=== PATIENT | female | born 1935 | race African-American/Black ===

== ENCOUNTER 2017-10-28 15:18 | Observation (INO) | payer OTHER ==
[~2017-10-28] VITALS: Ht 152.4 cm; Wt 70.0 kg
[2017-10-28 15:22] VITALS: BP 183/81; PULSE 72; RESP 18; TEMP 99; O2SAT 94
--- NOTE | 2017-10-28 15:44 | PD ---
HPI Chief Complaint: Respiratory Symptoms Time Seen by Provider: 15:35 Travel History International Travel<30 days: No Contact w/Intl Traveler<30days: No Traveled to known affect area: No History of Present Illness HPI 82-year-old Afro-Af[place] female presents the emergency department with her daughter with reports of increasing dyspnea with exertion over the past week. The patient herself complains of no pain, significant shortness of breath, abdominal pain, or urinary symptoms. Denies cough or wheezing. Patient's O2 sat is 94% on room air in triage. Patient has no history of COPD or asthma. Patient does have history of CHF. Patient has history of TIA in the past. Patient has no acute complaints at this time. Patient states the edema in her legs is not more than usual. She denies chest pain or calf pain. She has no known drug allergies. PFSH Past Medical History Cardiovascular Problems: Yes Respiratory: Yes Social History Alcohol Use: No Tobacco Use: No Substance Use: No Allergies-Medications (Allergen,Severity, Reaction): Coded Allergies: No Known Allergies (Unverified , 10/28/17) Reported Meds & Prescriptions Reported Meds & Active Scripts Active Active Prescriptions or Reported Medications Unobtainable Review of Systems Except as stated in HPI: all other systems reviewed are Neg General / Constitutional: No: Fever, Chills Eyes: No: Visual changes HENT: No: Headaches Cardiovascular: Positive: Dyspnea on exertion (according to daughter.), Edema, No: Chest Pain or Discomfort, Palpitations, Irregular Rhythm, Tachycardia, Diaphoresis, Syncope, Varicosities, Cyanosis, Varicosities (chronic), Phlebitis , Claudication Respiratory: Positive: Shortness of Breath, No: Cough, Wheezing, Sneezing Gastrointestinal: Positive: Loss of Appetite, No: Nausea, Vomiting, Diarrhea, Abdominal Pain Genitourinary: No: Dysuria Musculoskeletal: No: Pain Skin: No Rash Neurologic: No: Weakness Psychiatric: No: Depression Endocrine: No: Polydipsia Hematologic/Lymphatic: No: Easy Bruising Physical Exam Narrative GENERAL: Patient appears in good spirits. She is in no acute distress. SKIN: Warm and dry. Normal color. Normal turgor. HEAD: Atraumatic. Normocephalic. EYES: Pupils equal and round. No scleral icterus. No injection or drainage. ENT: No nasal bleeding or discharge. Mucous membranes pink and moist. NECK: Trachea midline. No JVD. CARDIOVASCULAR: Regular rate and rhythm. No murmurs gallops or rubs appreciated. RESPIRATORY: No accessory muscle use. Mild crackles to both bases to auscultation. Breath sounds equal bilaterally. GASTROINTESTINAL: Abdomen soft, non-tender, nondistended. Hepatic and splenic margins not palpable. MUSCULOSKELETAL: Extremities without clubbing, cyanosis, but 1-2+ pitting edema to both lower extremities. No obvious deformities. No significant calf tenderness with palpation. Negative Homans sign bilaterally. NEUROLOGICAL: Awake and alert. No obvious cranial nerve deficits. Motor grossly within normal limits. Five out of 5 muscle strength in the arms and legs. Normal speech. PSYCHIATRIC: Appropriate mood and affect; insight and judgment normal. Data Data Last Documented VS Vital Signs Date Time Temp Pulse Resp B/P (MAP) Pulse Ox O2 Delivery O2 Flow Rate FiO2 10/28/17 17:55 79 16 223/95 (137) 96 Nasal Cannula 2.00 10/28/17 15:22 99.0 Orders Orders Complete Blood Count With Diff (10/28/17 15:39) Comprehensive Metabolic Panel (10/28/17 15:39) B-Type Natriuretic Peptide (10/28/17 15:39) Act Partial Throm Time (Ptt) (10/28/17 15:39) Prothrombin Time / Inr (Pt) (10/28/17 15:39) Magnesium (Mg) (10/28/17 15:39) Ckmb (Isoenzyme) Profile (10/28/17 15:39) Troponin I (10/28/17 15:39) Urinalysis - C+S If Indicated (10/28/17 15:39) Iv Access Insert/Monitor (10/28/17 15:39) Electrocardiogram (10/28/17 15:39) Ecg Monitoring (10/28/17 15:39) Oximetry (10/28/17 15:39) Oxygen Administration (10/28/17 15:39) Chest, Single Ap (10/28/17 15:39) Sodium Chloride 0.9% Flush (Ns Flush) (10/28/17 15:45) Furosemide Inj (Lasix Inj) (10/28/17 15:45) CKMB (10/28/17 15:45) CKMB% (10/28/17 15:45) Ceftriaxone Inj (Rocephin Inj) (10/28/17 18:15) Azithromycin (Zithromax) (10/28/17 18:15) Labs Laboratory Tests Test 10/28/17 15:45 10/28/17 16:35 White Blood Count 12.3 TH/MM3 Red Blood Count 4.37 MIL/MM3 Hemoglobin 12.4 GM/DL Hematocrit 35.5 % Mean Corpuscular Volume 81.1 FL Mean Corpuscular Hemoglobin 28.4 PG Mean Corpuscular Hemoglobin Concent 35.1 % Red Cell Distribution Width 16.7 % Platelet Count 456 TH/MM3 Mean Platelet Volume 7.4 FL Neutrophils (%) (Auto) 68.3 % Lymphocytes (%) (Auto) 19.2 % Monocytes (%) (Auto) 9.8 % Eosinophils (%) (Auto) 1.5 % Basophils (%) (Auto) 1.2 % Neutrophils # (Auto) 8.4 TH/MM3 Lymphocytes # (Auto) 2.4 TH/MM3 Monocytes # (Auto) 1.2 TH/MM3 Eosinophils # (Auto) 0.2 TH/MM3 Basophils # (Auto) 0.1 TH/MM3 CBC Comment DIFF FINAL Differential Comment Prothrombin Time 10.2 SEC Prothromb Time International Ratio 1.0 RATIO Activated Partial Thromboplast Time 27.9 SEC Blood Urea Nitrogen 18 MG/DL Creatinine 1.13 MG/DL Random Glucose 118 MG/DL Total Protein 9.0 GM/DL Albumin 3.9 GM/DL Calcium Level 9.5 MG/DL Magnesium Level 2.3 MG/DL Alkaline Phosphatase 96 U/L Aspartate Amino Transf (AST/SGOT) 32 U/L Alanine Aminotransferase (ALT/SGPT) 42 U/L Total Bilirubin 0.2 MG/DL Sodium Level 136 MEQ/L Potassium Level 3.8 MEQ/L Chloride Level 100 MEQ/L Carbon Dioxide Level 29.9 MEQ/L Anion Gap 6 MEQ/L Estimat Glomerular Filtration Rate 46 ML/MIN Total Creatine Kinase 132 U/L Creatine Kinase MB 2.1 NG/ML Troponin I LESS THAN 0.02 NG/ML B-Type Natriuretic Peptide 294 PG/ML Urine Color YELLOW Urine Turbidity CLEAR Urine pH 6.5 Urine Specific [place] 1.012 Urine Protein 30 mg/dL Urine Glucose (UA) NEG mg/dL Urine Ketones NEG mg/dL Urine Occult Blood NEG Urine Nitrite NEG Urine Bilirubin NEG Urine Urobilinogen LESS THAN 2.0 MG/DL Urine Leukocyte Esterase SMALL Urine RBC 1 /hpf Urine WBC 6 /hpf Urine Squamous Epithelial Cells 2 /hpf Microscopic Urinalysis Comment CULT NOT INDICATED MDM Medical Decision Making Medical Screen Exam Complete: Yes Emergency Medical Condition: Yes Medical Record Reviewed: Yes Differential Diagnosis Exertional dyspnea. CHF. Cardiac syndrome. Renal failure. Narrative Course Patient is medically stable at time of exam per Labs ordered including CBC, CMP, proBNP, cardiac panel, and urinalysis. Chest x-ray is ordered. EKG is ordered. IV access is obtained and the patient is given 40 mg furosemide IV. EKG shows normal sinus rhythm. Chest x-ray shows left basilar opacity is present which may be due to a combination of consolidation and or pleural effusion and mild pulmonary edema. Per radiologist. CBC shows mild leukocytosis of 12.3. Coagulation studies are unremarkable. CMP significant for creatinine 1.13, GFR 46, random glucose 118. Troponin is less than 0.02, BNP is 294. Total protein is high at 9.0. Urinalysis is unremarkable. Patient is felt to have a possible pneumonia versus CHF. Patient is given Rocephin 1000 mg IM as well as azithromycin 500 mg by mouth. Call was placed to the hospitalist to discuss admission. Diagnosis Primary Impression: Pleural effusion associated with pulmonary infection Additional Impression: Exertional dyspnea Admitting Information Admitting Physician Requests: Observation Scripts Unable to Obtain Active Prescriptions or Reported Meds Condition: Faheem Thomas Oct 28, 2017 15:44
[2017-10-28] MEDS ORDERED: FUROSEMIDE 40 MG/4 ML VIAL IVP ONE (15:45)
[2017-10-28] MEDS ORDERED: SODIUM CHLORIDE 0.9% FLUSH 10 ML FLUSH IVF PRN (15:45)
[2017-10-28 15:58] LABS: AUTOMATED NEUTROPHIL # 8.4 TH/MM3 (1.8-7.7); BASOPHIL # 0.1 TH/MM3 (0-0.2); BASOPHIL % 1.2 % (0.0-2.0); EOSINOPHIL # 0.2 TH/MM3 (0-0.4); EOSINOPHIL % 1.5 % (0.0-4.0); HEMATOCRIT 35.5 % (35.0-46.0); HEMOGLOBIN 12.4 GM/DL (11.6-15.3); LYMPH % 19.2 % (9.0-44.0); LYMPHOCYTE # 2.4 TH/MM3 (1.0-4.8); MEAN CELL VOLUME 81.1 FL (80.0-100.0); MEAN CORPUSCULAR HEMOGLOBIN 28.4 PG (27.0-34.0); MEAN CORPUSCULAR HGB CONC 35.1 % (32.0-36.0); MEAN PLATELET VOLUME 7.4 FL (7.0-11.0); MONO % 9.8 % (0.0-8.0); MONOCYTE # 1.2 TH/MM3 (0-0.9); NEUT % 68.3 % (16.0-70.0); PLATELET COUNT 456 TH/MM3 (150-450); RED BLOOD COUNT 4.37 MIL/MM3 (4.00-5.30); RED CELL DISTRIBUTION WIDTH 16.7 % (11.6-17.2); WHITE BLOOD COUNT 12.3 TH/MM3 (4.0-11.0)
[2017-10-28 16:09] LABS: PROTHROMBIN TIME - PATIENT 10.2 SEC (9.8-11.6)
[2017-10-28 16:18] LABS: ALBUMIN 3.9 GM/DL (3.4-5.0); ALT (GPT) 42 U/L (10-53); AST (GOT) 32 U/L (15-37); BICARBONATE 29.9 MEQ/L (21.0-32.0); BLOOD UREA NITROGEN 18 MG/DL (7-18); CALCIUM 9.5 MG/DL (8.5-10.1); CHLORIDE 100 MEQ/L (98-107); CREATININE 1.13 MG/DL (0.50-1.00); GLOMERULAR FILTRATION RATE 46 ML/MIN (>89); GLUCOSE,RANDOM 118 MG/DL (74-106); MAGNESIUM 2.3 MG/DL (1.5-2.5); SODIUM (NA) 136 MEQ/L (136-145)
[2017-10-28 16:23] LABS: ALKALINE PHOSPHATASE 96 U/L (45-117); TOTAL BILIRUBIN ADULT 0.2 MG/DL (0.2-1.0); TROPONIN I LESS THAN 0.02 NG/ML (0.02-0.05)
--- NOTE | 2017-10-28 16:23 | RADRPT ---
EXAM DATE/TIME: 10/28/2017 16:07 [place] COMPARISON: No previous studies available for comparison. INDICATIONS : Shortness of breath. MEDICAL HISTORY : None. SURGICAL HISTORY : None. ENCOUNTER: Initial ACUITY: 1 day PAIN SCORE: 0/10 LOCATION: Bilateral chest FINDINGS: Left basilar opacity is present may be due to a combination of consolidation and or pleural effusion. Slight cardiomegaly is present with mild perivascular pulmonary edema. CONCLUSION: Left basilar opacity is present may be due to a combination of consolidation and or pleural effusion and mild pulmonary edema. Xuan Duff MD on October 28, 2017 at 16:20 Board Certified Radiologist. This report was verified electronically.
[2017-10-28 17:21] LABS: BILIRUBIN, URINE NEG (NEG); BLOOD, URINE NEG (NEG); GLUCOSE,URINE NEG (NEG); KETONE, URINE NEG (NEG); NITRITE,URINE NEG (NEG); PH, URINE 6.5 (5.0-8.5); SQUAMOUS EPITHELIAL CELL URINE 2 /hpf (0-5); URINE COLOR YELLOW (YELLW/STRAW); URINE LEUKOCYTE ESTERASE SMALL (NEG)
[2017-10-28 17:55] VITALS: BP 223/95; PULSE 79; RESP 16; O2SAT 96
[2017-10-28] MEDS ORDERED: AZITHROMYCIN 250 MG TAB PO ONE (18:15)
[2017-10-28] MEDS ORDERED: cefTRIAXone INJ 1,000 MG in SODIUM CHLORIDE 0.9% INJ 100 ML IV ONE (18:15)
[2017-10-28] MEDS ORDERED: NALOXONE HCL 0.4 MG/ML AMP IV PUSH PRN (18:45)
[2017-10-28] MEDS ORDERED: SODIUM CHLORIDE 0.9% FLUSH 10 ML FLUSH IV FLUSH PRN ×2 (18:45→19:00)
[2017-10-28] MEDS ORDERED: ACETAMINOPHEN/HYDROcodone 325 MG/10 MG TAB PO PRN (19:00)
[2017-10-28] MEDS ORDERED: MAGNESIUM HYDROXIDE SUSP 30 ML CUP PO PRN (19:00)
[2017-10-28] MEDS ORDERED: LACTULOSE SYRUP 20 GM/30 ML CUP PO PRN (19:00)
[2017-10-28] MEDS ORDERED: BISACODYL 10 MG SUPP RECTAL PRN (19:00)
[2017-10-28] MEDS ORDERED: RESP: ALBUTEROL 2.5 MG/IPRATROPIUM 0.5 MG NEB (PRN) NEB (19:00)
[2017-10-28] MEDS ORDERED: SENNOSIDES 8.6 MG TAB PO PRN (19:00)
[2017-10-28] MEDS ORDERED: ACETAMINOPHEN/HYDROcodone 325 MG/5 MG TAB PO PRN (19:00)
[2017-10-28] MEDS ORDERED: ONDANSETRON HCL 4 MG/2 ML VIAL IVP PRN (19:00)
[2017-10-28] MEDS ORDERED: ACETAMINOPHEN 325 MG TAB PO PRN (19:00)
--- NOTE | 2017-10-28 19:00 | HHI.HP ---
[facility] Service [facility] Primary Care Physician Kimo Vences III, MD Admission Diagnosis Pneumonia Diagnoses: (1) CHF (congestive heart failure) Diagnosis: Principal (2) PNA (pneumonia) Diagnosis: Principal (3) Renal insufficiency Diagnosis: Principal (4) Bacteriuria Diagnosis: Principal (5) HTN (hypertension) Diagnosis: Principal Travel History International Travel<30 Days: No Contact w/Intl Traveler <30 Da: No Traveled to Known Affected Are: No History of Present Illness This is an 82-year-old female with a PMH of HTN and CHF (EF unknown) who is brought to the ER by Daughter secondary to SOB for approx 1wk. Pt reports mild SOB however worse w/ exertion. No associated chest pain, cough or wheezing. Does note bilateral lower extremity edema, worse than baseline. Moderate severity. On arrival, BP 183/81, HR 72, O2 sat 94% on RA, Temp 99.0. Chemistry unremarkable except for creatinine 1.13. Troponin negative. BNP 294. INR 1.0. UA with LE and bacteriuria. CXR with left basilar opacity possibly, patient consolidation and or pleural effusion and mild pulmonary edema. S/p Lasix 40mg IV x1 and Rocephin/Zithro in ER. Review of Systems Except as stated in HPI: all other systems reviewed are Neg ROS: 14 point review of systems otherwise negative. Past Family Social History Past Medical History PMH: HTN and CHF (EF unknown) Past Surgical History PAST SURGICAL HISTORY: None Allergies: Coded Allergies: No Known Allergies (Unverified , 10/28/17) Family History PAST FAMILY HISTORY: Reviewed. No h/o DM or CAD Social History PAST SOCIAL HISTORY: Negative for alcohol, tobacco or drugs per Physical Exam Vital Signs Vital Signs Date Time Temp Pulse Resp B/P (MAP) Pulse Ox O2 Delivery O2 Flow Rate FiO2 10/28/17 17:55 79 16 223/95 (137) 96 Nasal Cannula 2.00 10/28/17 15:22 99.0 72 18 183/81 (115) 94 Room Air Physical Exam PE: GENERAL: Pleasant elderly black female in no acute distress. HEENT: PERRLA, EOMI. No scleral icterus or conjunctival pallor. No lid lag or facial droop. CARDIOVASCULAR: Regular rate and rhythm. No obvious murmurs to auscultation. No chest tenderness to palpation. RESPIRATORY: No obvious rhonchi or wheezing. Clear to auscultation. Breath sounds equal bilaterally. GASTROINTESTINAL: Abdomen soft, non-tender, nondistended. BS normal. MUSCULOSKELETAL: Extremities without clubbing, cyanosis. 1+ edema. No obvious deformities. NEUROLOGICAL: Awake, alert and oriented x4. No focal neurologic deficits. Moving both upper and lower extremities spontaneously. Laboratory Laboratory Tests Test 10/28/17 15:45 10/28/17 16:35 White Blood Count 12.3 Red Blood Count 4.37 Hemoglobin 12.4 Hematocrit 35.5 Mean Corpuscular Volume 81.1 Mean Corpuscular Hemoglobin 28.4 Mean Corpuscular Hemoglobin Concent 35.1 Red Cell Distribution Width 16.7 Platelet Count 456 Mean Platelet Volume 7.4 Neutrophils (%) (Auto) 68.3 Lymphocytes (%) (Auto) 19.2 Monocytes (%) (Auto) 9.8 Eosinophils (%) (Auto) 1.5 Basophils (%) (Auto) 1.2 Neutrophils # (Auto) 8.4 Lymphocytes # (Auto) 2.4 Monocytes # (Auto) 1.2 Eosinophils # (Auto) 0.2 Basophils # (Auto) 0.1 CBC Comment DIFF FINAL Differential Comment Prothrombin Time 10.2 Prothromb Time International Ratio 1.0 Activated Partial Thromboplast Time 27.9 Blood Urea Nitrogen 18 Creatinine 1.13 Random Glucose 118 Total Protein 9.0 Albumin 3.9 Calcium Level 9.5 Magnesium Level 2.3 Alkaline Phosphatase 96 Aspartate Amino Transf (AST/SGOT) 32 Alanine Aminotransferase (ALT/SGPT) 42 Total Bilirubin 0.2 Sodium Level 136 Potassium Level 3.8 Chloride Level 100 Carbon Dioxide Level 29.9 Anion Gap 6 Estimat Glomerular Filtration Rate 46 Total Creatine Kinase 132 Creatine Kinase MB 2.1 Troponin I LESS THAN 0.02 B-Type Natriuretic Peptide 294 Urine Color YELLOW Urine Turbidity CLEAR Urine pH 6.5 Urine Specific [place] 1.012 Urine Protein 30 Urine Glucose (UA) NEG Urine Ketones NEG Urine Occult Blood NEG Urine Nitrite NEG Urine Bilirubin NEG Urine Urobilinogen LESS THAN 2.0 Urine Leukocyte Esterase SMALL Urine RBC 1 Urine WBC 6 Urine Squamous Epithelial Cells 2 Microscopic Urinalysis Comment CULT NOT INDICATED Result Diagram: 10/28/17 1545 10/28/17 154 Caprini VTE Risk Assessment Caprini VTE Risk Assessment: No/Low Risk (score <= 1) Caprini Risk Assessment Model Point Value = 1 Point Value = 2 Point Value = 3 Point Value = 5 Age 41-60 Minor surgery BMI > 25 kg/m2 Swollen legs Varicose veins or History of unexplained or recurrent spontaneous Oral contraceptives or hormone replacement Sepsis (< 1 month) Serious lung disease, including pneumonia (< 1 month) Abnormal pulmonary function Acute myocardial infarction Congestive heart failure (< 1 month) History of inflammatory bowel disease Medical patient at bed rest Age 61-74 Arthroscopic surgery Major open surgery (> 45 min) Laparoscopic surgery (> 45 min) Malignancy Confined to bed (> 72 hours) Immobilizing plaster cast Central venous access Age >= 75 History of VTE Family history of VTE Factor V Leiden Prothrombin [id number] Lupus anticoagulant Anticardiolipin antibodies Elevated serum homocysteine Heparin-induced thrombocytopenia Other congenital or acquired thrombophilia Stroke (< 1 month) Elective arthroplasty Hip, pelvis, or leg fracture Acute spinal cord injury (< 1 month) Prophylaxis Regimen Total Risk Factor Score Risk Level Prophylaxis Regimen 0-1 Low Early ambulation 2 Moderate Order ONE of the following: *Sequential Compression Device (SCD) *Heparin 5000 units SQ BID 3-4 Higher Order ONE of the following medications: *Heparin 5000 units SQ TID *Enoxaparin/Lovenox 40 mg SQ daily (WT < 150 kg, CrCl > 30 mL/min) *Enoxaparin/Lovenox 30 mg SQ daily (WT < 150 kg, CrCl > 10-29 mL/min) *Enoxaparin/Lovenox 30 mg SQ BID (WT < 150 kg, CrCl > 30 mL/min) AND/OR *Sequential Compression Device (SCD) 5 or more Highest Order ONE of the following medications: *Heparin 5000 units SQ TID (Preferred with Epidurals) *Enoxaparin/Lovenox 40 mg SQ daily (WT < 150 kg, CrCl > 30 mL/min) *Enoxaparin/Lovenox 30 mg SQ daily (WT < 150 kg, CrCl > 10-29 mL/min) *Enoxaparin/Lovenox 30 mg SQ BID (WT < 150 kg, CrCl > 30 mL/min) AND *Sequential Compression Device (SCD) Assessment and Plan Problem List: (1) CHF (congestive heart failure) ICD Code: I50.9 - Heart failure, unspecified (2) PNA (pneumonia) ICD Code: J18.9 - Pneumonia, unspecified organism (3) Bacteriuria ICD Code: R82.71 - Bacteriuria (4) Renal insufficiency ICD Code: N28.9 - Disorder of kidney and ureter, unspecified (5) HTN (hypertension) ICD Code: I10 - Essential (primary) hypertension Assessment and Plan A/P: 1. CHF: h/o CHF per report, however EF unknown. BNP 294, CXR w/ likely pleural effusion and mild pulmonary edema, on exam 1+ bilateral pitting edema. S/p Lasix 40mg IV x1 in ER, continue w/ Lasix 20mg IV bid, caution w/ renal insufficiency, monitor I/O closely. Check Echo to eval for extent of systolic/ diastolic dysfunction. Resume home medications once available, no med rec at this time. 2. PNA: CXR w/ LLL opacity, consolidation w/ effusion, images reviewed by me. Temp 99.0, +leukocytosis w/ WBC 12.3. S/p Rocephin/Zithro, will continue w/ IV Abx for empiric treatment of PNA. DuoNeb prn. 3. Renal Insufficiency: Creatinine 1.13, no previous labs for comparison. IVF for hydration, caution with CHF and diuresis. Repeat labs in a.m. 4. Bacteriuria. UA with small LE and bacteriuria, asymptomatic, however in light of multiple comorbidities and low-grade temps/leukocytosis, will continue with IV Abx for coverage of UTI as well. 5. HTN: Uncontrolled. BP 183/81, HR 72 on arrival. Start Metoprolol bid, monitor BP closely for need to add additional medications, obtain med rec. 6. DVT Prophylaxis: SCD/Teds. 7. Social work for d/c planning as needed. 8. Records/labs/imaging reviewed by me, case discussed w/ day physician. Lanny Mercado MD Oct 28, 2017 19:00
--- NOTE | 2017-10-28 19:31 | EKG ---
Date Performed: 10/28/2017 Time Performed: 15:57:48 PTAGE: 82 years EKG: Baseline artifact present probable Sinus rhythm NONSPECIFIC T-WAVE ABNORMALITY BORDERLINE ECG NO PREVIOUS TRACING DOCTOR: Ethan Henderson Interpretating Date/Time 10/28/2017 19:29:27
[2017-10-28 19:32] VITALS: BP 139/78
[2017-10-28] MEDS ORDERED: VERA1TAB17 PO (20:23)
[2017-10-28] MEDS ORDERED: QUET5TAB PO (20:23)
[2017-10-28] MEDS ORDERED: DONE5TAB7 PO (20:23)
[2017-10-28] MEDS ORDERED: TRAZ50TA12 PO (20:23)
[2017-10-28] MEDS ORDERED: ASPI81TA81 (20:23)
[2017-10-28] MEDS ORDERED: OXYC1TAB63 PO (20:23)
[2017-10-28] MEDS ORDERED: LORA0.5T PO (20:23)
[2017-10-28] MEDS ORDERED: LINA145C PO (20:23)
[2017-10-28] MEDS ORDERED: TRAV0.00 EACH EYE (20:23)
[2017-10-28] MEDS: METOPROLOL TARTRATE 25 MG TAB PO SCH (20:38)
[2017-10-28] MEDS: DOCUSATE SODIUM 50 MG/SENNA 8.6 MG TAB PO SCH (20:38)
[2017-10-28] MEDS: SODIUM CHLORIDE 0.9% FLUSH 10 ML FLUSH IV FLUSH SCH (20:39)
[2017-10-28 20:51] VITALS: BP 168/72; PULSE 71; RESP 22; TEMP 97.6; O2SAT 97
[2017-10-28] MEDS ORDERED: SODIUM CHLORIDE 0.9% FLUSH 10 ML FLUSH IV FLUSH SCH (21:00)
[2017-10-28 22:06] LABS: TROPONIN I LESS THAN 0.02 NG/ML (0.02-0.05)
[2017-10-28 23:04] VITALS: BP 152/72; PULSE 67; RESP 20; TEMP 98.1; O2SAT 94
[2017-10-29] VITALS (13 sets, daily range): BP systolic 149–192; BP diastolic 69–89; PULSE 61–73; RESP 16–21; TEMP 97.4–98.5; O2SAT 96–100
[2017-10-29 04:17] LABS: AUTOMATED NEUTROPHIL # 6.1 TH/MM3 (1.8-7.7); BASOPHIL # 0.1 TH/MM3 (0-0.2); BASOPHIL % 0.6 % (0.0-2.0); EOSINOPHIL # 0.2 TH/MM3 (0-0.4); EOSINOPHIL % 2.2 % (0.0-4.0); HEMATOCRIT 33.1 % (35.0-46.0); HEMOGLOBIN 11.4 GM/DL (11.6-15.3); LYMPHOCYTE # 1.6 TH/MM3 (1.0-4.8); MEAN CELL VOLUME 80.3 FL (80.0-100.0); MEAN CORPUSCULAR HEMOGLOBIN 27.7 PG (27.0-34.0); MEAN CORPUSCULAR HGB CONC 34.6 % (32.0-36.0); MEAN PLATELET VOLUME 7.3 FL (7.0-11.0); MONO % 10.2 % (0.0-8.0); MONOCYTE # 0.9 TH/MM3 (0-0.9); PLATELET COUNT 407 TH/MM3 (150-450); RED BLOOD COUNT 4.12 MIL/MM3 (4.00-5.30); RED CELL DISTRIBUTION WIDTH 16.9 % (11.6-17.2); WHITE BLOOD COUNT 8.9 TH/MM3 (4.0-11.0)
[2017-10-29 04:37] LABS: ALBUMIN 3.4 GM/DL (3.4-5.0); AST (GOT) 37 U/L (15-37); BICARBONATE 28.7 MEQ/L (21.0-32.0); BLOOD UREA NITROGEN 16 MG/DL (7-18); CALCIUM 9.1 MG/DL (8.5-10.1); CHLORIDE 97 MEQ/L (98-107); GLOMERULAR FILTRATION RATE 64 ML/MIN (>89); GLUCOSE,RANDOM 122 MG/DL (74-106); SODIUM (NA) 135 MEQ/L (136-145)
[2017-10-29 04:38] LABS: ALT (GPT) 35 U/L (10-53)
[2017-10-29 04:41] LABS: ALKALINE PHOSPHATASE 79 U/L (45-117); TOTAL BILIRUBIN ADULT 0.4 MG/DL (0.2-1.0); TOTAL PROTEIN 7.8 GM/DL (6.4-8.2); TROPONIN I LESS THAN 0.02 NG/ML (0.02-0.05)
[2017-10-29] MEDS: DOCUSATE SODIUM 50 MG/SENNA 8.6 MG TAB PO SCH ×2 (07:36→20:41)
[2017-10-29] MEDS: METOPROLOL TARTRATE 25 MG TAB PO SCH ×2 (07:36→22:47)
[2017-10-29] MEDS: SODIUM CHLORIDE 0.9% FLUSH 10 ML FLUSH IV FLUSH SCH ×2 (07:37→20:40)
[2017-10-29] MEDS: FUROSEMIDE 20 MG/2 ML VIAL IV PUSH SCH ×2 (07:37→17:12)
[2017-10-29] MEDS ORDERED: cloNIDine HCL 0.1 MG TAB PO PRN (08:00)
[2017-10-29] MEDS ORDERED: hydrALAZINE HCL 10 MG TAB PO PRN (08:45)
--- NOTE | 2017-10-29 09:03 | EKG ---
Date Performed: 10/29/2017 Time Performed: 04:22:39 PTAGE: 82 years EKG: Sinus rhythm Nonspecific T wave changes No significant change from prior electrocardiogram. PREVIOUS TRACING : 10/28/2017 21.37 DOCTOR: Ethan Henderson Interpretating Date/Time 10/29/2017 09:03:33
--- NOTE | 2017-10-29 09:19 | EKG ---
Date Performed: 10/28/2017 Time Performed: 21:37:39 PTAGE: 82 years EKG: Baseline artifact present Sinus rhythm NONSPECIFIC T-WAVE ABNORMALITY BORDERLINE ECG No significant change from prior electrocardiogram. PREVIOUS TRACING : 10/28/2017 15.57 DOCTOR: Ethan Henderson Interpretating Date/Time 10/29/2017 09:17:34
[2017-10-29] MEDS: ENALAPRILAT 1.25 MG/ML VIAL IV PUSH PRN ×2 (11:08→17:11)
--- NOTE | 2017-10-29 13:18 | HHI.PR ---
Subjective Remarks Weakness and SOB still present, but improving. She ambulates well at baseline. No oxygen dependence at baseline. Pressures are uncontrolled today. Objective Vital Signs Date Time Temp Pulse Resp B/P (MAP) Pulse Ox O2 Delivery O2 Flow Rate FiO2 10/29/17 12:27 152/79 (103) 10/29/17 11:22 98.1 63 18 99 10/29/17 11:05 180/77 (111) 10/29/17 09:21 152/78 (102) 10/29/17 08:00 61 10/29/17 07:07 97.4 65 16 172/69 (103) 100 10/29/17 04:17 97.9 63 21 149/78 (101) 96 10/28/17 23:04 98.1 67 20 152/72 (98) 94 10/28/17 20:51 97.6 71 22 168/72 (104) 97 10/28/17 19:32 139/78 (98) 10/28/17 17:55 79 16 223/95 (137) 96 Nasal Cannula 2.00 10/28/17 15:22 99.0 72 18 183/81 (115) 94 Room Air I/O 10/28/17 10/28/17 10/28/17 10/29/17 10/29/17 10/29/17 07:00 15:00 23:00 07:00 15:00 23:00 Intake Total 500 ml Balance 500 ml Intake Oral 500 ml # Voids 1 2 Result Diagram: 10/29/17 0344 10/29/17 0344 Objective Remarks GENERAL: NAD, A&Ox1 HEAD: Normocephalic. NECK: Supple, trachea midline. No lymphadenopathy. EYES: No scleral icterus. No injection or drainage. CARDIOVASCULAR: Regular rate and rhythm without murmurs, gallops, or rubs. RESPIRATORY: Breath sounds equal bilaterally. No accessory muscle use. GASTROINTESTINAL: Abdomen soft, non-tender, nondistended. MUSCULOSKELETAL: No cyanosis, or edema. SKIN: Warm and dry. NEURO: No focal neurological deficitis. A/P Problem List: (1) PNA (pneumonia) ICD Code: J18.9 - Pneumonia, unspecified organism (2) HTN (hypertension) ICD Code: I10 - Essential (primary) hypertension Assessment and Plan 82-year-old female admitted secondary to respiratory distress and weakness Possible CHF exacerbation No known previous history of CHF Her daughter is unaware of any CHF Follow echocardiogram results Community Acquired Pneumonia Continue Rocephin Continue azithromycin Continue oxygen as needed Follow for improvement Renal insufficiency Monitor renal function Hypertension Continue metoprolol Monitor blood pressures DVT prophylaxis SCDs Kwaku Carreon MD Oct 29, 2017 13:18
--- NOTE | 2017-10-29 15:50 | ECHRPT ---
Indication: CHF CONCLUSIONS The left ventricular systolic function is normal with an estimated ejection fraction in the range of 60-65%. Normal left ventricular size. Moderate concentric left ventricular hypertrophy. No regional wall motion abnormalities are present. The left atrial size is moderately dilated. Trace mitral valve regurgitation. There is mild to moderate tricuspid valve regurgitation. There is estimated [id number] pulmonary hypertension present (range 60-70 mmHg). BP: / HR: Rhythm: Sinus MEASUREMENTS (Male / Female) Normal Values Technical Quality:Fair 2D ECHO LV Diastolic Diameter PLAX 3.4 cm 4.2 - 5.9 / 3.9 - 5.3 cm LV Systolic Diameter PLAX 2.2 cm IVS Diastolic Thickness 1.4 cm 0.6 - 1.0 / 0.6 - 0.9 cm LVPW Diastolic Thickness 1.4 cm 0.6 - 1.0 / 0.6 - 0.9 cm LV Relative Wall Thickness 0.8 RV Internal Dim ED PLAX 2.4 cm LVOT Diameter 2.0 cm LA Systolic Diameter LX 2.6 cm 3.0 - 4.0 / 2.7 - 3.8 cm LV Ejection Fraction MOD 4C 65.5 % LV Ejection Fraction 4C AL 67.7 % M-MODE Aortic Root Diameter MM 2.7 cm AV Cusp Separation MM 1.3 cm DOPPLER AV Peak Velocity 130.0 cm/s AV Peak Gradient 6.8 mmHg LVOT Peak Velocity 109.0 cm/s LVOT Peak Gradient 4.8 mmHg AV Area Cont Eq pk 2.6 cm MV Area PHT 5.2 cm Mitral E Point Velocity 126.0 cm/s Mitral A Point Velocity 86.9 cm/s Mitral E to A Ratio 1.4 LV E' Lateral Velocity 3.4 cm/s Mitral E to LV E' Lateral Ratio 37.0 LV E' Septal Velocity 3.5 cm/s Mitral E to LV E' Septal Ratio 35.9 TR Peak Velocity 379.0 cm/s TR Peak Gradient 57.5 mmHg Right Atrial Pressure 10.0 mmHg Pulmonary Artery Systolic Pressu 67.5 mmHg Right Ventricular Systolic Press 67.5 mmHg PV Peak Velocity 80.1 cm/s PV Peak Gradient 2.6 mmHg FINDINGS LEFT VENTRICLE The left ventricular systolic function is normal with an estimated ejection fraction in the range of 60-65%. Normal left ventricular size. Moderate concentric left ventricular hypertrophy. No regional wall motion abnormalities are present. RIGHT VENTRICLE Normal right ventricular size and systolic function. LEFT ATRIUM The left atrial size is moderately dilated. RIGHT ATRIUM The right atrial size is normal. ATRIAL SEPTUM Normal atrial septal thickness without atrial level shunting by limited color doppler interrogation. AORTA The aortic root and proximal ascending aorta are normal in size on limited imaging. MITRAL VALVE Structurally normal mitral valve. Trace mitral valve regurgitation. AORTIC VALVE Trileaflet aortic valve. No aortic valve stenosis or regurgitation. TRICUSPID VALVE Structurally normal tricuspid valve. There is mild to moderate tricuspid valve regurgitation. There is estimated [id number] pulmonary hypertension present (range 60-70 mmHg). PULMONARY VALVE No pulmonary valve regurgitation or stenosis. VESSELS The inferior vena cava is normal in size. PERICARDIUM No pericardial effusion. Vladislav Carpio MD, FACC (Electronically Signed) Final Date:29 October 2017 15:49
[2017-10-29] MEDS ORDERED: LEVOFLOXACIN 750 MG PREMIX INJ 150 ML IV SCH ×2 (20:00)
[2017-10-29] MEDS ORDERED: QUEtiapine FUMARATE 25 MG TAB PO SCH (21:00)
[2017-10-29] MEDS ORDERED: DONEPEZIL HCL 5 MG TAB PO SCH (21:00)
[2017-10-29] MEDS ORDERED: LATANOPROST 0.005% OPHT SOLN 2.5 ML BTL EACH EYE SCH (21:00)
[2017-10-29] MEDS ORDERED: traZODone HCL 50 MG TAB PO SCH (21:00)
[2017-10-29] MEDS ORDERED: VERAPAMIL HCL 240 MG SUSTAINED RELEASE TAB PO SCH (21:00)
[2017-10-30 00:11] VITALS: BP 140/82; PULSE 74; RESP 18; O2SAT 97
[2017-10-30 03:35] VITALS: PULSE 58
[2017-10-30 04:24] VITALS: BP 150/67; PULSE 78; RESP 18; TEMP 97.8; O2SAT 98
[2017-10-30 07:35] VITALS: O2SAT 98
[2017-10-30 08:28] LABS: AUTOMATED NEUTROPHIL # 5.5 TH/MM3 (1.8-7.7); BASOPHIL % 0.2 % (0.0-2.0); EOSINOPHIL # 0.2 TH/MM3 (0-0.4); EOSINOPHIL % 1.8 % (0.0-4.0); HEMATOCRIT 33.4 % (35.0-46.0); HEMOGLOBIN 11.4 GM/DL (11.6-15.3); LYMPH % 21.3 % (9.0-44.0); LYMPHOCYTE # 1.9 TH/MM3 (1.0-4.8); MEAN CELL VOLUME 80.7 FL (80.0-100.0); MEAN CORPUSCULAR HEMOGLOBIN 27.5 PG (27.0-34.0); MEAN PLATELET VOLUME 7.2 FL (7.0-11.0); MONO % 14.4 % (0.0-8.0); MONOCYTE # 1.3 TH/MM3 (0-0.9); NEUT % 62.3 % (16.0-70.0); PLATELET COUNT 374 TH/MM3 (150-450); RED BLOOD COUNT 4.14 MIL/MM3 (4.00-5.30); WHITE BLOOD COUNT 8.8 TH/MM3 (4.0-11.0)
[2017-10-30 08:38] VITALS: BP 177/76; PULSE 58; RESP 24; TEMP 98.2; O2SAT 100
[2017-10-30 08:54] LABS: ALT (GPT) 28 U/L (10-53); AST (GOT) 28 U/L (15-37); BICARBONATE 31.3 MEQ/L (21.0-32.0); BLOOD UREA NITROGEN 18 MG/DL (7-18); CALCIUM 8.7 MG/DL (8.5-10.1); CHLORIDE 96 MEQ/L (98-107); CREATININE 1.16 MG/DL (0.50-1.00); GLOMERULAR FILTRATION RATE 54 ML/MIN (>89); GLUCOSE,RANDOM 87 MG/DL (74-106); SODIUM (NA) 135 MEQ/L (136-145)
[2017-10-30 08:57] LABS: ALKALINE PHOSPHATASE 68 U/L (45-117); TOTAL BILIRUBIN ADULT 0.4 MG/DL (0.2-1.0); TOTAL PROTEIN 7.3 GM/DL (6.4-8.2)
[2017-10-30] MEDS: SODIUM CHLORIDE 0.9% FLUSH 10 ML FLUSH IV FLUSH SCH (09:12)
[2017-10-30] MEDS: DOCUSATE SODIUM 50 MG/SENNA 8.6 MG TAB PO SCH (09:13)
[2017-10-30] MEDS: METOPROLOL TARTRATE 25 MG TAB PO SCH (09:13)
[2017-10-30] MEDS: FUROSEMIDE 20 MG/2 ML VIAL IV PUSH SCH (09:13)
[2017-10-30] MEDS ORDERED: LEVA750T9 PO (09:45)
[2017-10-30] MEDS ORDERED: LACTTAB8 PO (09:45)
[2017-10-30] MEDS ORDERED: METO25TA3 PO (09:45)
--- NOTE | 2017-10-30 09:49 | HHI.DS ---
Discharge Summary Admission Date Oct 28, 2017 at 18:40 Discharge Date: Oct 30, 2017 Admitting Diagnosis Pneumonia (1) CHF (congestive heart failure) ICD Code: I50.9 - Heart failure, unspecified Diagnosis: Principal (2) PNA (pneumonia) ICD Code: J18.9 - Pneumonia, unspecified organism Diagnosis: Principal (3) Bacteriuria ICD Code: R82.71 - Bacteriuria Diagnosis: Secondary (4) Renal insufficiency ICD Code: N28.9 - Disorder of kidney and ureter, unspecified Diagnosis: Secondary (5) HTN (hypertension) ICD Code: I10 - Essential (primary) hypertension Diagnosis: Secondary Procedures None Brief History - From Admission This is an 82-year-old female with a PMH of HTN and CHF (EF unknown) who is brought to the ER by Daughter secondary to SOB for approx 1wk. Pt reports mild SOB however worse w/ exertion. No associated chest pain, cough or wheezing. Does note bilateral lower extremity edema, worse than baseline. Moderate severity. On arrival, BP 183/81, HR 72, O2 sat 94% on RA, Temp 99.0. Chemistry unremarkable except for creatinine 1.13. Troponin negative. BNP 294. INR 1.0. UA with LE and bacteriuria. CXR with left basilar opacity possibly, patient consolidation and or pleural effusion and mild pulmonary edema. S/p Lasix 40mg IV x1 and Rocephin/Zithro in ER. CBC/BMP: 10/30/17 0748 10/30/17 0748 Significant Findings Laboratory Tests Test 10/28/17 15:45 10/28/17 16:35 10/28/17 21:14 10/29/17 03:44 White Blood Count 12.3 TH/MM3 (4.0-11.0) Platelet Count 456 TH/MM3 (150-450) Monocytes (%) (Auto) 9.8 % (0.0-8.0) 10.2 % (0.0-8.0) Neutrophils # (Auto) 8.4 TH/MM3 (1.8-7.7) Monocytes # (Auto) 1.2 TH/MM3 (0-0.9) Creatinine 1.13 MG/DL (0.50-1.00) Random Glucose 118 MG/DL (74-106) 122 MG/DL (74-106) Total Protein 9.0 GM/DL (6.4-8.2) Estimat Glomerular Filtration Rate 46 ML/MIN (>89) 64 ML/MIN (>89) Troponin I LESS THAN 0.02 NG/ML LESS THAN 0.02 NG/ML LESS THAN 0.02 NG/ML B-Type Natriuretic Peptide 294 PG/ML (0-100) Urine Protein 30 mg/dL (NEG-TRACE) Urine Leukocyte Esterase SMALL (NEG) Urine WBC 6 /hpf (0-5) Total Creatine Kinase 334 U/L (26-192) 638 U/L (26-192) Creatine Kinase MB 4.5 NG/ML (0.5-3.6) 4.4 NG/ML (0.5-3.6) Hemoglobin 11.4 GM/DL (11.6-15.3) Hematocrit 33.1 % (35.0-46.0) Sodium Level 135 MEQ/L (136-145) Chloride Level 97 MEQ/L (98-107) Test 10/30/17 07:48 Hemoglobin 11.4 GM/DL (11.6-15.3) Hematocrit 33.4 % (35.0-46.0) Monocytes (%) (Auto) 14.4 % (0.0-8.0) Monocytes # (Auto) 1.3 TH/MM3 (0-0.9) Creatinine 1.16 MG/DL (0.50-1.00) Albumin 3.0 GM/DL (3.4-5.0) Sodium Level 135 MEQ/L (136-145) Chloride Level 96 MEQ/L (98-107) Estimat Glomerular Filtration Rate 54 ML/MIN (>89) Total Creatine Kinase 298 U/L (26-192) Hospital Course Mrs. Craig is an 82 year old female. She was admitted here secondary to acute shortness of breath. Etiology was discovered to be related to pneumonia. She has been covered with Levaquin while here. She has improvement in her symptoms. Respiratory status is returning towards baseline. Patient has no complaints today. She lives at home with her daughter. Dementia is present at baseline. Medical stable for discharge to home today with continuation of by mouth Levaquin and probiotics. We've also adjusted her blood pressure medications. She will discharge with metoprolol 25 mg by mouth twice a day. Pt Condition on Discharge: Stable Discharge Disposition: Discharge Home Discharge Time: <= 30 minutes Discharge Instructions DIET: Follow Instructions for: As Tolerated, No Restrictions Activities you can perform: Regular-No Restrictions Follow up Referrals: PCP Follow-up - 2 Weeks New Medications: Lactobacillus Acidophilus (Lactobacillus Acidophilus) 1 Billion Cell Tab 1 TAB PO TIDAC for Nutritional Supplement, #30 TAB 0 Refills Levofloxacin (Levaquin) 750 Mg Tablet 750 MG PO DAILY for Infection, #5 TAB 0 Refills Metoprolol Tartrate (Metoprolol Tartrate) 25 Mg Tab 25 MG PO Q12HR for Blood Pressure Management, #60 TAB Continued Medications: Aspirin DR (Aspir-81) 81 Mg Tabdr Donepezil (Donepezil) 5 Mg Tab 5 MG PO HS for Dementia, #30 TAB 0 Refills Lorazepam (Lorazepam) 0.5 Mg Tab 0.5 MG PO HS PRN for ANXIETY AND/OR INSOMNIA, TAB 0 Refills Oxycodone-Acetaminophen (Oxycodone-Acetaminophen) 5-325 mg Tab 1 TAB PO Q6H PRN for PAIN, TAB 0 Refills Quetiapine (Quetiapine) 50 Mg Tab 50 MG PO HS, #30 TAB 0 Refills Travoprost Opth Drops (Travatan Z Opth Drops) 0.004 % Soln 1 DROP EACH EYE HS for Glaucoma, #1 BOTTLE 0 Refills Trazodone (Trazodone) 50 Mg Tab 50 MG PO HS for Control Depression, #30 TAB 0 Refills Verapamil ER 24 HR (Verapamil ER 24 HR) 240 Mg Tab 240 MG PO HS, #30 TAB 0 Refills Kwaku Carreon MD Oct 30, 2017 09:48
== END 2017-10-30 12:35 | disposition home or self-care (01) ==
LOC: NEPE 15:18 → NEDA 18:40 → NEPGCP 20:11
PROVIDERS: ADMIT Hospitalist; ATTEND Hospitalist
DX: I50.9 Heart failure, unspecified (principal); I11.0 Hypertensive heart disease with heart failure; J18.9 Pneumonia, unspecified organism; R82.71 Bacteriuria; N28.9 Disorder of kidney and ureter, unspecified; F03.90 Unspecified dementia, unspecified severity, without behavioral disturbance, psychotic disturbance, mood disturbance, and anxiety; Z79.899 Other long term (current) drug therapy; Z86.73 Personal history of transient ischemic attack (TIA), and cerebral infarction without residual deficits
CPT/HCPCS: 71010; 80053; 81001; 82550; 82552; 83735; 83880; 84443; 84484; 85025; 85610; 85730; 93005; 93306; 94150; 96365; 96366; 96367; 96375; 96376; 97162; 99285; G0378; G8987; G8988; J0696; J1940; J1956

== ENCOUNTER 2018-06-06 17:18 | Inpatient (IN) ==
--- NOTE | 2018-06-06 19:37 | XR ---
EXAM DATE: 06/06/2018 7:31 PM EDT AGE/SEX: 83 years / Female INDICATIONS: Short of breath CLINICAL DATA: This is the patient's initial encounter. Patient reports that signs and symptoms have been present for 1 day and indicates a pain score of Nonresponsive. MEDICAL/SURGICAL HISTORY: . Cellulitis Non-responsive. COMPARISON: [facility], XR CHEST PA AND LAT, 12/12/2017. . FINDINGS: A single AP view of the chest demonstrates the lungs to be symmetrically aerated without evidence of mass, infiltrate or effusion. The cardiomediastinal contours are unremarkable. Osseous structures a re intact. CONCLUSION: No evidence of acute cardiopulmonary process. Electronically signed by: Thierno Castillo MD 06/06/2018 7:35 PM EDT
[2018-06-06 20:02] LABS: Baso # (Auto) 0.1 th/mm3 (0.0-0.2); Baso % (Auto) 0.7 % (0.0-2.0); Eos # (Auto) 0.1 th/mm3 (0.0-0.4); Eos % (Auto) 0.5 % (0.0-4.0); Lymph # (Auto) 2.5 th/mm3 (1.0-4.8); Lymph % (Auto) 22.8 % (9.0-44.0); Mean Corpuscular HGB Conc 33.2 % (32.0-36.0); Mean Corpuscular Hemoglobin 26.5 pg (27.0-34.0); Mean Corpuscular Volume 79.6 fL (80.0-100.0); Mean Platelet Volume 7.9 fL (7.0-11.0); Mono % (Auto) 9.4 % (0.0-8.0); Neut # (Auto) 7.2 th/mm3 (1.8-7.7); Neut % (Auto) 66.6 % (16.0-70.0); Platelet Count 453 th/mm3 (150-450); Red Blood Count 3.77 mil/mm3 (4.00-5.30); Red Cell Distribution Width 16.5 % (11.6-17.2); White Blood Count 10.9 th/mm3 (4.0-11.0)
[2018-06-06 20:13] LABS: Activated Partial Thrombo Time 28.2 sec (24.3-30.1); INR 1.1 Ratio; Prothrombin Time 10.7 sec (9.8-11.6)
[2018-06-06 20:35] LABS: Calcium 8.9 mg/dL (8.5-10.1); Carbon Dioxide 20.8 meq/L (21.0-32.0); Potassium 4.8 meq/L (3.5-5.1)
[2018-06-06] MEDS ORDERED: Sodium Chlor 0.9% Inj 500 ML IV.SIG ONE (20:39)
--- NOTE | 2018-06-06 20:58 | ED ---
HPI General Chief Complaint: Wound/Laceration Stated Complaint: wound check/dr sent Time Seen by Provider: 06/06/18 19:39 History of Present Illness HPI narrative: 83 yo female sent from home by wound care. Patient has dementia so the history is from the family member at bedside. She is not sure exactly why wound care sent her to the ER but reports no urine for the last three days. Patient has also not been eating much but this has been more of a gradual process per family. Related Data Home Medications Medication Instructions Recorded Confirmed aspirin 81 mg PO DAILY 06/06/18 06/06/18 collagenase clostridium histo. 1 applic TOPICAL DAILY 06/06/18 06/06/18 [Santyl] lorazepam 0.5 mg PO HS 06/06/18 06/06/18 memantine-donepezil [Namzaric] 1 cap PO HS 06/06/18 06/06/18 metoprolol succinate 25 mg PO DAILY 06/06/18 06/06/18 oxybutynin chloride 10 mg PO HS 06/06/18 06/06/18 pantoprazole 40 mg PO DAILY 06/06/18 06/06/18 pravastatin 20 mg PO HS 06/06/18 06/06/18 quetiapine 50 mg PO HS 06/06/18 06/06/18 trazodone 50 mg PO HS 06/06/18 06/06/18 verapamil 240 mg PO QAM 06/06/18 06/06/18 Allergies Allergy/AdvReac Type Severity Reaction Status Date / Time No Known Allergies Allergy Verified 06/06/18 17:27 Review of Systems ROS Unobtainable ROS Unobtainable: unobtainable due to mental condition PMFSH Medical History Medical History CHF (congestive heart failure) (Acute) Dementia (Acute) Depression (Acute) High cholesterol (Acute) Hypertension (Acute) Family History Family History Other Unknown family medical history Social History Social History Substance History: No History of Abuse Smoking Status: Former smoker How Often Do You Have a Drink Containing Alcohol: Never Recent Travel in [facility] within the Last 8 Weeks: No Recent Out of Country Travel within the Last 8 Weeks: No Immunization History Tetanus Immunization: Unsure Hx Influenza Vaccine This Season: No Exam Narrative Exam Narrative: GENERAL: 83-year-old female in no distress SKIN: Bilateral sacral decub stage II. Bilateral decubitus ulcers on the heels also stage II. HEAD: Atraumatic. Normocephalic. EYES: Pupils equal and round. No scleral icterus. No injection or drainage. ENT: No nasal bleeding or discharge. Mucous membranes pink and moist. NECK: Trachea midline. No JVD. CARDIOVASCULAR: Regular rate and rhythm. No murmur appreciated. RESPIRATORY: No accessory muscle use. Clear to auscultation. Breath sounds equal bilaterally. GASTROINTESTINAL: Abdomen soft, non-tender, nondistended. Hepatic and splenic margins not palpable. MUSCULOSKELETAL: Kyphotic Course Initial Documented Vital Signs Temperature 97.7 F 06/06/18 17:22 Pulse Rate 64 06/06/18 17:22 Respiratory Rate 22 06/06/18 17:22 Blood Pressure 157/69 H 06/06/18 17:22 Pulse Oximetry 99 06/06/18 17:22 Last Documented Vital Signs Temperature 98 F 06/07/18 04:00 Pulse Rate 72 06/07/18 04:00 Respiratory Rate 18 06/07/18 04:00 Blood Pressure 152/70 H 06/07/18 04:00 Pulse Oximetry 97 06/07/18 04:00 Medical Decision Making MDM Narrative Medical decision making narrative: Patient was seen and evaluated in the emergency department. Wound cultures were obtained. Her laboratory studies demonstrated acute renal failure with bump in her creatinine from 1.44.8. She was subsequently admitted to [facility] for further evaluation and treatment. Lab Data Result diagrams: 06/06/18 19:40 06/06/18 19:40 Lab Results 06/06/18 06/06/18 06/06/18 Range/Units 19:40 19:40 19:40 WBC 10.9 (4.0-11.0) th/mm3 RBC 3.77 L (4.00-5.30) mil/mm3 Hgb 10.0 L (11.6-15.3) gm/dL Hct 30.0 L (35.0-46.0) % MCV 79.6 L (80.0-100.0) fL MCH 26.5 L (27.0-34.0) pg MCHC 33.2 (32.0-36.0) % RDW 16.5 (11.6-17.2) % Plt Count 453 H (150-450) th/mm3 MPV 7.9 (7.0-11.0) fL Neut % (Auto) 66.6 (16.0-70.0) % Lymph % (Auto) 22.8 (9.0-44.0) % Mccreary % (Auto) 9.4 H (0.0-8.0) % Eos % (Auto) 0.5 (0.0-4.0) % Baso % (Auto) 0.7 (0.0-2.0) % Neut # (Auto) 7.2 (1.8-7.7) th/mm3 Lymph # (Auto) 2.5 (1.0-4.8) th/mm3 Mccreary # (Auto) 1.0 H (0.0-0.9) th/mm3 Eos # (Auto) 0.1 (0.0-0.4) th/mm3 Baso # (Auto) 0.1 (0.0-0.2) th/mm3 WBC Differential . Differential Comment Auto diff final PT 10.7 (9.8-11.6) sec INR 1.1 Ratio APTT 28.2 (24.3-30.1) sec Sodium 137 (136-145) meq/L Potassium 4.8 (3.5-5.1) meq/L Chloride 104 (98-107) meq/L Carbon Dioxide 20.8 L (21.0-32.0) meq/L Anion Gap 12 (5-15) meq/L BUN 57 H (7-18) mg/dL Creatinine 4.88 H (0.50-1.00) mg/dL Estimated GFR 10 L (>89) mL/min Random Glucose 94 (74-106) mg/dL Calcium 8.9 (8.5-10.1) mg/dL Imaging Data Radiologist's impression: Foot X-Ray 06/06/18 00:00 CONCLUSION: No evidence of recent bony injury. Foot X-Ray 06/06/18 00:00 CONCLUSION: Soft tissue swelling with ulceration or tissue injury along the posterior margin of the calcaneus. No evidence of acute fracture or significant arthropathy. Chest X-Ray 06/06/18 19:16 CONCLUSION: No evidence of acute cardiopulmonary process. Discharge Plan Discharge Disposition Patient Disposition: 30 Still Patient Discharge Condition Condition: Stable Discharge Details Diagnosis: Acute renal failure Physicians Team ED Provider: Austyn Priest Primary Care Provider: UNKNOWN, Attending Provider: Dulce Gorman Other Providers: Harley Julien Status ED Status: Left Department Discharge Information Discharge Date/Time: 06/06/18 22:05
[2018-06-06] MEDS ORDERED: Acetaminophen 325 MG Tablet PO PRN (21:46)
[2018-06-06] MEDS ORDERED: Temazepam 15 MG Capsule PO PRN (21:46)
[2018-06-06] MEDS ORDERED: Bisacodyl 10 MG Supp RECTAL PRN (21:46)
--- NOTE | 2018-06-06 21:58 | P.HP ---
History of Present Illness Service: [facility] Primary Care Physician: UNKNOWN History of Present Illness: 83-year-old female with a past medical history significant for dementia, hypertension, hyperlipidemia, depression and CHF presents to the emergency department from her home at the recommendation of her wound care nurse. The wound care nurse reports that the patient's wounds on her bilateral heels suddenly worsened and are now unstageable. She recommended emergency room for further evaluation. On arrival to the ED, the patient was found to be in acute renal failure with a creatinine of 4.88 (baseline 1.1). Per the patient's daughter she has not urinated in the last 3 days. Unable to achieve meaningful history from the patient secondary to her dementia. Inpatient Certification: I certify that the inpatient services were ordered in accordance with Medicare regulations governing the order. This includes certification that hospital inpatient services are reasonable and necessary and in the case of services not specified as inpatient-only under 42 CFR 419.22(n), that they are appropriately provided as inpatient services in accordance to with the 2-midnight benchmark under 43 CFR 412.3(e) Estimated Total Length of Stay (Days): 3 Plans for Post Hospital Care: Not yet determined Review of Systems unobtainable due to mental condition PMFSH - History History Provided By: Patient, Family Member - Medical / Surgical Hx Neg / Unobtainable Surgical History: Unable to Obtain - Medical History Medical History: Medical History (Last Updated 06/06/18 @ 20:25 by Brittany Payne RN) CHF (congestive heart failure) Dementia Depression High cholesterol Hypertension - Family History Family History: Family History (Last Updated 06/06/18 @ 21:53 by Dulce Gorman MD) Other Unknown family medical history - Tobacco History Smoking Status: Former smoker - Alcohol History How Often Do You Have a Drink Containing Alcohol: Never - Substance Use History Substance History: No History of Abuse - Travel History Recent Travel in the [place] Within the Last 8 Weeks: No Recent Travel Out of the Country Within the Last 8 Weeks: No - Immunization History Tetanus Immunization: Unsure Hx Influenza Vaccine This Season: No Medications and Allergies Active Medications: Active Medications Al Hydroxide/Mg Hydroxide (Milk Of Magnrajesh Liq) 30 ml PO Q12H PRN PRN Reason: Mild Constipation Aspirin (Aspirin Chew) 81 mg PO DAILY [facility] Bisacodyl (Dulcolax Supp) 10 mg RECTAL DAILY PRN PRN Reason: SEVERE CONSITIPATION Heparin Sodium (Porcine) (Heparin Inj) 5,000 units SQ Q12H [facility] Sodium Chloride (Ns Inj) 500 mls @ 250 mls/hr IV.SIG BOLUS ONE Stop: 06/06/18 22:38 Last Admin: 06/06/18 21:07 Dose: 250 mls/hr Sodium Chloride (Ns Inj) 1,000 mls @ 70 mls/hr IV.CONT .[id number] [facility]I Lactulose (Lactulose Liq) 30 ml PO DAILY PRN PRN Reason: SEVERE CONSITIPATION Lorazepam (Ativan) 0.5 mg PO HS [facility] Metoprolol Succinate (Toprol Xl) 25 mg PO DAILY [facility] Non-Formulary Medication (Memantine-Donepezil [Namzaric]) 1 cap PO HS [facility] Non-Formulary Medication (Oxybutynin Chloride [Oxybutynin Chloride]) 10 mg PO HS [facility] Non-Formulary Medication (Quetiapine [Quetiapine]) 50 mg PO HS [facility] Ondansetron HCl (Zofran Inj) 4 mg IV.PUSH Q6H PRN PRN Reason: NAUSEA OR VOMITING Pantoprazole Sodium (Protonix) 40 mg PO DAILY [facility] Allergies Allergy/AdvReac Type Severity Reaction Status Date / Time No Known Allergies Allergy Verified 06/06/18 17:27 Home Medications Medication Instructions Recorded Confirmed Type aspirin 81 mg PO DAILY 06/06/18 06/06/18 History collagenase clostridium histo. 1 applic TOPICAL DAILY 06/06/18 06/06/18 History [Santyl] lorazepam 0.5 mg PO HS 06/06/18 06/06/18 History memantine-donepezil [Namzaric] 1 cap PO HS 06/06/18 06/06/18 History metoprolol succinate 25 mg PO DAILY 06/06/18 06/06/18 History oxybutynin chloride 10 mg PO HS 06/06/18 06/06/18 History pantoprazole 40 mg PO DAILY 06/06/18 06/06/18 History pravastatin 20 mg PO HS 06/06/18 06/06/18 History quetiapine 50 mg PO HS 06/06/18 06/06/18 History trazodone 50 mg PO HS 06/06/18 06/06/18 History verapamil 240 mg PO QAM 06/06/18 06/06/18 History Exam Vital signs: Vital Signs 06/06/18 17:22 06/06/18 17:27 Temperature 97.7 F Pulse Rate 64 71 Respiratory Rate 22 18 Blood Pressure 157/69 H 107/68 Pulse Oximetry 99 95 Intake & Output 06/06/18 06/06/18 06/07/18 06:59 18:59 06:59 Weight 54.431 kg Narrative: Gen.: No acute distress Head: Normocephalic. Atraumatic. EENT: Pupils equal round and reactive to light. Nose without drainage. Airway intact. Throat without injection. Cardiovascular: Regular rate and rhythm. No murmurs, rubs or gallops. Respiratory: Lungs clear to auscultation bilaterally. No wheezes or rhonchi. Abdomen: Soft, nontender, nondistended. No peritoneal signs. Musculoskeletal: No gross deformities. No edema. Skin: 2 pressure ulcers on the heels, right worse than left. Stage IV sacral ulcer. Neuro: Sensory and motor grossly intact. Cranial nerves II through XII grossly intact. Results - Labs CBC & Chem 7: 06/06/18 19:40 06/06/18 19:40 Labs: Laboratory Results - last 24 hr 06/06/18 06/06/18 06/06/18 19:40 19:40 19:40 WBC 10.9 RBC 3.77 L Hgb 10.0 L Hct 30.0 L MCV 79.6 L MCH 26.5 L MCHC 33.2 RDW 16.5 Plt Count 453 H MPV 7.9 Neut % (Auto) 66.6 Lymph % (Auto) 22.8 Reeves % (Auto) 9.4 H Eos % (Auto) 0.5 Baso % (Auto) 0.7 Neut # (Auto) 7.2 Lymph # (Auto) 2.5 Reeves # (Auto) 1.0 H Eos # (Auto) 0.1 Baso # (Auto) 0.1 WBC Differential . Differential Comment Auto diff final PT 10.7 INR 1.1 APTT 28.2 Sodium 137 Potassium 4.8 Chloride 104 Carbon Dioxide 20.8 L Anion Gap 12 BUN 57 H Creatinine 4.88 H Estimated GFR 10 L Random Glucose 94 Calcium 8.9 - Imaging Impressions Chest X-Ray 06/06/18 19:16 CONCLUSION: No evidence of acute cardiopulmonary process. Caprini VTE Risk Assessment Caprini VTE Risk Assessment: Moderate/High Risk (score >= 2) Caprini Risk Assessment Model: Point Value = 1 Point Value = 2 Point Value = 3 Point Value = 5 Age 41-60 Minor surgery BMI > 25 kg/m2 Swollen legs Varicose veins or History of unexplained or recurrent spontaneous Oral contraceptives or hormone replacement Sepsis (< 1 month) Serious lung disease, including pneumonia (< 1 month) Abnormal pulmonary function Acute myocardial infarction Congestive heart failure (< 1 month) History of inflammatory bowel disease Medical patient at bed rest Age 61-74 Arthroscopic surgery Major open surgery (> 45 min) Laparoscopic surgery (> 45 min) Malignancy Confined to bed (> 72 hours) Immobilizing plaster cast Central venous access Age >= 75 History of VTE Family history of VTE Factor V Leiden Prothrombin 25418B Lupus anticoagulant Anticardiolipin antibodies Elevated serum homocysteine Heparin-induced thrombocytopenia Other congenital or acquired thrombophilia Stroke (< 1 month) Elective arthroplasty Hip, pelvis, or leg fracture Acute spinal cord injury (< 1 month) Prophylaxis Regimen: Total Risk Factor Score Risk Level Prophylaxis Regimen 0-1 Low Early ambulation 2 Moderate Order ONE of the following: *Sequential Compression Device (SCD) *Heparin 5000 units SQ BID 3-4 Higher Order ONE of the following medications: *Heparin 5000 units SQ TID *Enoxaparin/Lovenox 40 mg SQ daily (WT < 150 kg, CrCl > 30 mL/min) *Enoxaparin/Lovenox 30 mg SQ daily (WT < 150 kg, CrCl > 10-29 mL/min) *Enoxaparin/Lovenox 30 mg SQ BID (WT < 150 kg, CrCl > 30 mL/min) AND/OR *Sequential Compression Device (SCD) 5 or more Highest Order ONE of the following medications: *Heparin 5000 units SQ TID (Preferred with Epidurals) *Enoxaparin/Lovenox 40 mg SQ daily (WT < 150 kg, CrCl > 30 mL/min) *Enoxaparin/Lovenox 30 mg SQ daily (WT < 150 kg, CrCl > 10-29 mL/min) *Enoxaparin/Lovenox 30 mg SQ BID (WT < 150 kg, CrCl > 30 mL/min) AND *Sequential Compression Device (SCD) Assessment and Plan - Plan Assessment/plan: 1. Acute renal failure Unclear etiology UA pending, not able to obtain as patient anuric Renal ultrasound pending Neurology consulted, appreciate assistance 2. Acutely worsening bilateral heel ulcers Concern for osteomyelitis, bilateral heel x-rays pending Wound care consulted 3. Hypertension/hyperlipidemia Continue home medications 4. Dementia/depression Continue home medications 5. CHF Patient's daughter reports a history of CHF however patient is not on any diuretic therapies Gentle IV fluid hydration given history FEN Renal diet Electrolytes: Monitor and replete as needed NS at 70 cc/hour Heparin
--- NOTE | 2018-06-06 22:22 | XR ---
EXAM DATE: 06/06/2018 10:16 PM EDT AGE/SEX: 83 years / Female INDICATIONS: Contusion. CLINICAL DATA: This is the patient's initial encounter. Patient reports that signs and symptoms have been present for 1 day and indicates a pain score of 4/10. MEDICAL/SURGICAL HISTORY: . Cellulitis None. COMPARISON: [facility], FOOT RIGHT HEEL CALC MIN 2V, 06/06/2018. . FINDINGS: Bony structures are intact and in normal alignment. Osseous density is normal. Soft tissues are unre markable. No radiopaque foreign bodies seen. CONCLUSION: No evidence of recent bony injury. Electronically signed by: Thierno Castillo MD 06/06/2018 10:21 PM EDT
--- NOTE | 2018-06-06 22:23 | XR ---
EXAM DATE: 06/06/2018 10:15 PM EDT AGE/SEX: 83 years / Female INDICATIONS: Contusion. CLINICAL DATA: This is the patient's initial encounter. Patient reports that signs and symptoms have been present for 1 day and indicates a pain score of 4/10. MEDICAL/SURGICAL HISTORY: . Cellulitis None. COMPARISON: No prior exams available for comparison. FINDINGS: Significant soft tissue swelling is seen from the lower calf to the hindfoot. A soft tissue defect re presenting either an ulceration or tissue injury seen posterior to the calcaneus. Bony structures are intact without evidence of fracture or dislocation. There is no significant arthropathy. CONCLUSION: Soft tissue swelling with ulceration or tissue injury along the posterior margin of the calcaneus. No evidence of acute fracture or significant arthropathy. Electronically signed by: Thierno Castillo MD 06/06/2018 10:22 PM EDT
[2018-06-06] MEDS: Heparin - SQ 10,000 UNITS/ML Vial SQ SCH (22:41)
[2018-06-06] MEDS: Sod Chloride 0.9% Inj 1,000 ML IV.CONT SCH (22:41)
[2018-06-06] MEDS: QUEtiapine 25 MG Tablet PO SCH (22:41)
[2018-06-06] MEDS: LORazepam 0.5 MG Tablet PO SCH (22:42)
[2018-06-06] MEDS: traZODone 50 MG Tablet PO SCH (22:42)
[2018-06-06] MEDS: Verapamil SR 240 MG Tablet PO SCH (22:44)
[2018-06-07 06:11] LABS: Baso % (Auto) 0.5 % (0.0-2.0); Eos # (Auto) 0.1 th/mm3 (0.0-0.4); Eos % (Auto) 1.2 % (0.0-4.0); Hematocrit 24.2 % (35.0-46.0); Hemoglobin 8.2 gm/dL (11.6-15.3); Lymph # (Auto) 1.7 th/mm3 (1.0-4.8); Lymph % (Auto) 20.4 % (9.0-44.0); Mean Corpuscular HGB Conc 33.7 % (32.0-36.0); Mean Corpuscular Hemoglobin 26.9 pg (27.0-34.0); Mean Corpuscular Volume 79.6 fL (80.0-100.0); Mean Platelet Volume 7.9 fL (7.0-11.0); Mono # (Auto) 0.9 th/mm3 (0.0-0.9); Mono % (Auto) 10.1 % (0.0-8.0); Neut # (Auto) 5.8 th/mm3 (1.8-7.7); Neut % (Auto) 67.8 % (16.0-70.0); Platelet Count 404 th/mm3 (150-450); Red Blood Count 3.03 mil/mm3 (4.00-5.30); Red Cell Distribution Width 16.8 % (11.6-17.2); White Blood Count 8.5 th/mm3 (4.0-11.0)
[2018-06-07 06:53] LABS: Calcium 8.1 mg/dL (8.5-10.1); Carbon Dioxide 20.5 meq/L (21.0-32.0); Potassium 4.4 meq/L (3.5-5.1)
[2018-06-07] MEDS: Senna/Docusate Sodium 8.6/50 MG Tablet PO SCH ×2 (09:21→20:37)
[2018-06-07] MEDS: Verapamil SR 240 MG Tablet PO SCH (09:22)
[2018-06-07] MEDS: Heparin - SQ 10,000 UNITS/ML Vial SQ SCH ×2 (09:22→23:04)
--- NOTE | 2018-06-07 09:27 | US ---
EXAM DATE: 06/07/2018 9:03 AM EDT AGE/SEX: 83 years / Female INDICATIONS: Increased BUN and creatinine. CLINICAL DATA: This is the patient's initial encounter. Patient reports that signs and symptoms have been present for 1 day and indicates a pain score of 0/10. MEDICAL/SURGICAL HISTORY: Congestive heart failure. Dementia. Hypercholesterolemia. Hyperten [place]. None. COMPARISON: [facility], US KIDNEY, BILATERAL, 12/12/2017. . MEASUREMENTS: Right Kidney:__8.6 x 4.2 x 2.9 cm Left Kidney:__8.6 x 3.7 x 3.9 cm FINDINGS: Right Kidney: Increased echotexture. No mass or hydronephrosis. Left Kidney: Increased echotexture. No mass or hydronephrosis. Bladder: Urinary bladder is distended. Other: None. CONCLUSION: 1. Both kidneys are small with cortical atrophy and increased cortical echogenicity characteristic o f chronic medical renal disease. 2. Otherwise, no nephrolithiasis or hydronephrosis. 3. Distention of the urinary bladder Electronically signed by: Haile Adrian MD 06/07/2018 9:26 AM EDT
--- NOTE | 2018-06-07 13:30 | P.PNIM ---
Subjective Interval history: 83-year-old female with a past medical history significant for dementia, hypertension, hyperlipidemia, depression and CHF presents to the emergency department from her home at the recommendation of her wound care nurse. The wound care nurse reports that the patient's wounds on her bilateral heels suddenly worsened and are now unstageable. She recommended emergency room for further evaluation. On arrival to the ED, the patient was found to be in acute renal failure with a creatinine of 4.88 (baseline 1.1). Per the patient's daughter she has not urinated in the last 3 days. Unable to achieve meaningful history from the patient secondary to her dementia. 8-10 PATIENT DAUGHTER TOLD TO BRING HER IN BY DR WAYNE BA RN AND PT CONSULT PT AND OT AND AM LABS OFFLOAD HEELS AREAS Physical Exam Vital signs: Vital Signs 06/06/18 17:22 06/06/18 17:27 06/06/18 22:15 Temperature 97.7 F 97.3 F L Pulse Rate 64 71 73 Respiratory Rate 18 18 Blood Pressure 157/69 H 107/68 151/65 H Pulse Oximetry 99 95 93 L 06/07/18 04:00 06/07/18 08:00 06/07/18 09:13 Temperature 98 F 98.2 F Pulse Rate 72 64 Respiratory Rate 18 Blood Pressure 152/70 H 113/60 Pulse Oximetry 97 98 Intake & Output 06/06/18 06/07/18 06/07/18 18:59 06:59 18:59 Intake Total 220 / 220 Balance 220 / 220 Weight 54.431 kg 59.4 kg Intake: Oral 220 / 220 Other: # Voids 2 Weight On Admission 59.4 kg Narrative: Gen.: No acute distress Head: Normocephalic. Atraumatic. EENT: Pupils equal round and reactive to light. Nose without drainage. Airway intact. Throat without injection. Cardiovascular: Regular rate and rhythm. No murmurs, rubs or gallops. Respiratory: Lungs clear to auscultation bilaterally. No wheezes or rhonchi. Abdomen: Soft, nontender, nondistended. No peritoneal signs. Musculoskeletal: No gross deformities. No edema. Skin: 2 pressure ulcers on the heels, right worse than left. Stage IV sacral ulcer. Neuro: Sensory and motor grossly intact. Cranial nerves II through XII grossly intact. Results - Labs CBC & Chem 7: 06/07/18 05:32 06/07/18 05:32 Laboratory Results - last 24 hr 06/06/18 06/06/18 06/06/18 19:40 19:40 19:40 WBC 10.9 RBC 3.77 L Hgb 10.0 L Hct 30.0 L MCV 79.6 L MCH 26.5 L MCHC 33.2 RDW 16.5 Plt Count 453 H MPV 7.9 Neut % (Auto) 66.6 Lymph % (Auto) 22.8 Young % (Auto) 9.4 H Eos % (Auto) 0.5 Baso % (Auto) 0.7 Neut # (Auto) 7.2 Lymph # (Auto) 2.5 Young # (Auto) 1.0 H Eos # (Auto) 0.1 Baso # (Auto) 0.1 WBC Differential . Differential Comment Auto diff final PT 10.7 INR 1.1 APTT 28.2 Sodium 137 Potassium 4.8 Chloride 104 Carbon Dioxide 20.8 L Anion Gap 12 BUN 57 H Creatinine 4.88 H Estimated GFR 10 L Random Glucose 94 Calcium 8.9 06/07/18 06/07/18 05:32 05:32 WBC 8.5 RBC 3.03 L Hgb 8.2 L Hct 24.2 L MCV 79.6 L MCH 26.9 L MCHC 33.7 RDW 16.8 Plt Count 404 MPV 7.9 Neut % (Auto) 67.8 Lymph % (Auto) 20.4 Young % (Auto) 10.1 H Eos % (Auto) 1.2 Baso % (Auto) 0.5 Neut # (Auto) 5.8 Lymph # (Auto) 1.7 Young # (Auto) 0.9 Eos # (Auto) 0.1 Baso # (Auto) 0.0 WBC Differential . Differential Comment Auto diff final PT INR APTT Sodium 140 Potassium 4.4 Chloride 109 H Carbon Dioxide 20.5 L Anion Gap 11 BUN 52 H Creatinine 3.80 H Estimated GFR 14 L Random Glucose 65 L Calcium 8.1 L D Microbiology 06/06/18 20:00 Tissue - Heel Gram Stain - Final 06/06/18 20:00 Tissue - Heel Wound Culture - Preliminary Immature growth - reincubate 06/06/18 20:00 Tissue - Buttock Gram Stain - Final 06/06/18 20:00 Tissue - Buttock Wound Culture - Preliminary Immature growth - reincubate 06/06/18 20:00 Fluid - Other Gram Stain - Final 06/06/18 20:00 Fluid - Other Wound Culture - Preliminary Immature growth - reincubate - Imaging Impressions Foot X-Ray 06/06/18 00:00 CONCLUSION: No evidence of recent bony injury. Foot X-Ray 06/06/18 00:00 CONCLUSION: Soft tissue swelling with ulceration or tissue injury along the posterior margin of the calcaneus. No evidence of acute fracture or significant arthropathy. Chest X-Ray 06/06/18 19:16 CONCLUSION: No evidence of acute cardiopulmonary process. Abdomen/Bladder Ultrasound 06/07/18 00:00 CONCLUSION: 1. Both kidneys are small with cortical atrophy and increased cortical echogenicity characteristic of chronic medical renal disease. 2. Otherwise, no nephrolithiasis or hydronephrosis. 3. Distention of the urinary bladder Assessment and Plan - Plan 1. Acute renal failure Unclear etiology UA pending, not able to obtain as patient anuric Renal ultrasound pending Neurology consulted, appreciate assistance 2. Acutely worsening bilateral heel ulcers Concern for osteomyelitis, bilateral heel x-rays pending Wound care consulted 3. Hypertension/hyperlipidemia Continue home medications 4. Dementia/depression Continue home medications 5. CHF Patient's daughter reports a history of CHF however patient is not on any diuretic therapies Gentle IV fluid hydration given history FEN Renal diet Electrolytes: Monitor and replete as needed NS at 70 cc/hour Heparin Discussed Condition With: RN AND PT AND FAMILY Discharge Planning: PENDING IMPROVEMENT
[2018-06-07] MEDS: Sod Chloride 0.9% Inj 1,000 ML IV.CONT SCH (13:33)
--- NOTE | 2018-06-07 14:38 | P.CONNP ---
<Dinora Paul - Last Filed: 06/07/18 14:27> History of Present Illness Service: Nephrology Consult date: 06/07/18 Reason for Consult: Acute Renal Failure Primary Care Provider: UNKNOWN History of Present Illness: This is a 83 y/o AAF with dementia, HTN, GERD, hyperlipidemia, and overactive bladder. She was referred to ER for wounds on her heals. On arrival she is in renal failure with a creatinine of 4.8. It improved to 3.8 today. Her baseline is around 1. Imaging showed distended bladder. She is incontinent and on oxybutynin on arrival. I personally performed a bladder scan that showed 550 ml , and have asked the RN to place a bourne. Per the daughter, her urine output has been minimal. Her bladder is palpable. She does not speak much, moans and may say a few words. She is non in distress, and is a full code. Review of Systems unobtainable due to mental status PMFSH - History History Provided By: Medical Record - Medical History Medical History: Medical History (Last Reviewed 06/07/18 @ 08:19 by Nusrat Caban) CHF (congestive heart failure) Dementia Depression High cholesterol Hypertension - Family History Family History: Family History (Last Updated 06/06/18 @ 21:53 by Dulce Gorman MD) Other Unknown family medical history - Tobacco History Smoking Status: Former smoker - Alcohol History How Often Do You Have a Drink Containing Alcohol: Never - Substance Use History Substance History: No History of Abuse - Travel History Recent Travel in the [place] Within the Last 8 Weeks: No Recent Travel Out of the Country Within the Last 8 Weeks: No - Immunization History Tetanus Immunization: Unsure Hx Influenza Vaccine This Season: No Medications and Allergies Allergies Allergy/AdvReac Type Severity Reaction Status Date / Time No Known Allergies Allergy Verified 06/06/18 17:27 Home Medications Medication Instructions Recorded Confirmed Type aspirin 81 mg PO DAILY 06/06/18 06/06/18 History collagenase clostridium histo. 1 applic TOPICAL DAILY 06/06/18 06/06/18 History [Santyl] lorazepam 0.5 mg PO HS 06/06/18 06/06/18 History memantine-donepezil [Namzaric] 1 cap PO HS 06/06/18 06/06/18 History metoprolol succinate 25 mg PO DAILY 06/06/18 06/06/18 History oxybutynin chloride 10 mg PO HS 06/06/18 06/06/18 History pantoprazole 40 mg PO DAILY 06/06/18 06/06/18 History pravastatin 20 mg PO HS 06/06/18 06/06/18 History quetiapine 50 mg PO HS 06/06/18 06/06/18 History trazodone 50 mg PO HS 06/06/18 06/06/18 History verapamil 240 mg PO [facility] 06/06/18 06/06/18 History Active Medications: Active Medications Acetaminophen (Tylenol) 650 mg PO Q4H PRN PRN Reason: Temp > 100.4 Al Hydroxide/Mg Hydroxide (Milk Of Magnesia Liq) 30 ml PO Q12H PRN PRN Reason: Mild Constipation Aspirin (Aspirin Chew) 81 mg PO DAILY [facility] Last Admin: 06/07/18 09:21 Dose: 81 mg Bisacodyl (Dulcolax Supp) 10 mg RECTAL DAILY PRN PRN Reason: SEVERE CONSITIPATION Heparin Sodium (Porcine) (Heparin Inj) 5,000 units SQ Q12H [facility] Last Admin: 06/07/18 09:22 Dose: 5,000 units Sodium Chloride (Ns Inj) 1,000 mls @ 70 mls/hr IV.CONT .[id number] [facility] Last Admin: 06/07/18 13:33 Dose: 70 mls/hr Lactulose (Lactulose Liq) 30 ml PO DAILY PRN PRN Reason: SEVERE CONSITIPATION Lorazepam (Ativan) 0.5 mg PO [facility] Last Admin: 06/06/18 22:42 Dose: 0.5 mg Metoprolol Succinate (Toprol Xl) 25 mg PO DAILY [facility] Last Admin: 06/07/18 09:21 Dose: 25 mg Ondansetron HCl (Zofran Inj) 4 mg IV.PUSH Q6H PRN PRN Reason: NAUSEA OR VOMITING Oxybutynin Chloride (Ditropan) 10 mg PO [facility] Last Admin: 06/06/18 22:42 Dose: 10 mg Pantoprazole Sodium (Protonix) 40 mg PO DAILY [facility] Last Admin: 06/07/18 09:21 Dose: 40 mg Pt Own (Memantine- Donepezil [Namzaric] 1 Cap) 1 each PO [facility] Pravastatin Sodium (Pravachol) 20 mg PO HS [facility] Quetiapine Fumarate (Seroquel) 50 mg PO HS [facility] Last Admin: 06/06/18 22:41 Dose: 50 mg Senna/Docusate Sodium (Nia-Colace) 1 tab PO BID [facility] Last Admin: 06/07/18 09:21 Dose: 1 tab Sennosides (Senokot) 17.2 mg PO Q12H PRN PRN Reason: Moderate Constipation Temazepam (Restoril) 15 mg PO HS PRN PRN Reason: INSOMNIA Trazodone HCl (Desyrel) 50 mg PO HS [facility] Last Admin: 06/06/18 22:42 Dose: 50 mg Verapamil HCl (Isoptin Sr) 240 mg PO DAILY [facility] Last Admin: 06/07/18 09:22 Dose: 240 mg Exam Vital signs: Vital Signs 06/06/18 17:22 06/06/18 17:27 06/06/18 22:15 Temperature 97.7 F 97.3 F L Pulse Rate 64 71 73 Respiratory Rate 18 18 Blood Pressure 157/69 H 107/68 151/65 H Pulse Oximetry 99 95 93 L 06/07/18 04:00 06/07/18 08:00 06/07/18 09:13 Temperature 98 F 98.2 F Pulse Rate 72 64 Respiratory Rate 18 Blood Pressure 152/70 H 113/60 Pulse Oximetry 97 98 Intake & Output 06/06/18 06/07/18 06/07/18 18:59 06:59 18:59 Intake Total 220 / 220 1000 / 1000 Balance 220 / 220 1000 / 1000 Weight 54.431 kg 59.4 kg Intake: IV 1000 / 1000 NS Inj 1,000 ML @ 70 mls/hr IV. 1000 / 1000 CONT .[id number] [facility] Rx#:[id number] Oral 220 / 220 Other: # Voids 2 Weight On Admission 59.4 kg - Constitutional no acute distress, obese, chronically ill appearing, somnolent, obtunded - Routine HEENT Exam Head: Present: normocephalic - Routine Neck Exam Present: supple, full ROM - Routine Respiratory Exam Present: CTA bilaterally. Absent: accessory muscle use Comments: some grunting - Routine Cardiovascular Exam Present: RRR, S1, S2 - Routine Abdominal Exam Present: soft, normoactive bowel sounds - Routine Extremities Exam Present: edema - Routine Skin Exam Present: intact, dry, warm - Routine Neurological Exam Present: alert, oriented X3, CN II-XII intact Results - Lab Results 06/07/18 05:32 06/07/18 05:32 Most recent lab results Calcium 8.1 mg/dL (8.5-10.1) L D 06/07/18 05:32 - Image Kidney/bladder ultrasound: report reviewed, other Assessment and Plan - Assessment (1) Acute renal failure Code(s): N17.9 - Acute kidney failure, unspecified Status: Acute Plan: Normal renal function at baseline ROGER most likely due to urinary retention, bladder scan revealing nearly 600 ml Have asked for a Bourne to be placed Continue IVF, reduce NS to 50 ml/hr Monitor urine output, repeat labs, expect improvement Hold oxybutynin for now Repeat labs. Avoid nephrotoxins (2) HTN (hypertension) Code(s): I10 - Essential (primary) hypertension Status: Acute Plan: On metoprolol (3) Pressure ulcer, heel Code(s): L89.609 - Pressure ulcer of unspecified heel, unspecified stage Status: Acute Plan: Wound care, supportive care <Harley Julien - Last Filed: 06/07/18 18:31> History of Present Illness Primary Care Provider: UNKNOWN [facility] - Medical History Medical History: Medical History (Last Reviewed 06/07/18 @ 08:19 by Nusrat Caban) CHF (congestive heart failure) Dementia Depression High cholesterol Hypertension - Family History Family History: Family History (Last Updated 06/06/18 @ 21:53 by Dulce Gorman MD) Other Unknown family medical history Medications and Allergies Active Medications: Active Medications Acetaminophen (Tylenol) 650 mg PO Q4H PRN PRN Reason: Temp > 100.4 Al Hydroxide/Mg Hydroxide (Milk Of Magnesia Liq) 30 ml PO Q12H PRN PRN Reason: Mild Constipation Aspirin (Aspirin Chew) 81 mg PO DAILY [facility] Last Admin: 06/07/18 09:21 Dose: 81 mg Bisacodyl (Dulcolax Supp) 10 mg RECTAL DAILY PRN PRN Reason: SEVERE CONSITIPATION Heparin Sodium (Porcine) (Heparin Inj) 5,000 units SQ Q12H [facility] Last Admin: 06/07/18 09:22 Dose: 5,000 units Sodium Chloride (Ns Inj) 1,000 mls @ 50 mls/hr IV.CONT .Q20H [facility] Last Admin: 06/07/18 13:33 Dose: 70 mls/hr Lactulose (Lactulose Liq) 30 ml PO DAILY PRN PRN Reason: SEVERE CONSITIPATION Lorazepam (Ativan) 0.5 mg PO [facility] Last Admin: 06/06/18 22:42 Dose: 0.5 mg Metoprolol Succinate (Toprol Xl) 25 mg PO DAILY [facility] Last Admin: 06/07/18 09:21 Dose: 25 mg Ondansetron HCl (Zofran Inj) 4 mg IV.PUSH Q6H PRN PRN Reason: NAUSEA OR VOMITING Oxybutynin Chloride (Ditropan) 10 mg PO [facility] Last Admin: 06/06/18 22:42 Dose: 10 mg Pantoprazole Sodium (Protonix) 40 mg PO DAILY [facility] Last Admin: 06/07/18 09:21 Dose: 40 mg Pt Own (Memantine- Donepezil [Namzaric] 1 Cap) 1 each PO [facility] Pravastatin Sodium (Pravachol) 20 mg PO [facility] Quetiapine Fumarate (Seroquel) 50 mg PO [facility] Last Admin: 06/06/18 22:41 Dose: 50 mg Senna/Docusate Sodium (Nia-Colace) 1 tab PO BID [facility] Last Admin: 06/07/18 09:21 Dose: 1 tab Sennosides (Senokot) 17.2 mg PO Q12H PRN PRN Reason: Moderate Constipation Temazepam (Restoril) 15 mg PO HS PRN PRN Reason: INSOMNIA Trazodone HCl (Desyrel) 50 mg PO [facility] Last Admin: 06/06/18 22:42 Dose: 50 mg Verapamil HCl (Isoptin Sr) 240 mg PO DAILY [facility] Last Admin: 06/07/18 09:22 Dose: 240 mg Exam Vital signs: Vital Signs 06/06/18 19:16 06/06/18 22:15 06/07/18 04:00 Temperature 96.9 F L 97.3 F L 98 F Pulse Rate 70 73 72 Respiratory Rate 20 18 18 Blood Pressure 140/60 151/65 H 152/70 H Pulse Oximetry 68 L 93 L 97 06/07/18 08:00 06/07/18 09:13 Temperature 98.2 F Pulse Rate 64 Respiratory Rate 18 18 Blood Pressure 113/60 Pulse Oximetry 98 Intake & Output 06/06/18 06/07/18 06/07/18 18:59 06:59 18:59 Intake Total 220 / 220 2180 / 2180 Balance 220 / 220 2180 / 2180 Weight 54.431 kg 59.4 kg Intake: IV 1500 / 1500 NS Inj 1,000 ML @ 70 mls/hr IV. 1000 / 1000 CONT .[id number] [facility] Rx#:[id number] Oral 220 / 220 680 / 680 Other: # Voids 2 Weight On Admission 59.4 kg Results - Lab Results 06/07/18 05:32 06/07/18 05:32 Most recent lab results Calcium 8.1 mg/dL (8.5-10.1) L D 06/07/18 05:32 Assessment and Plan - Assessment (1) Acute renal failure Code(s): N17.9 - Acute kidney failure, unspecified Status: Acute (2) HTN (hypertension) Code(s): I10 - Essential (primary) hypertension Status: Acute (3) Pressure ulcer, heel Code(s): L89.609 - Pressure ulcer of unspecified heel, unspecified stage Status: Acute - Attending Attestation patient was seen and examined. ROGER could be due to urinary retention. Change IVF to 1/2NS. Agree with above assessment and plan. <Dinora Paul - Last Filed: 06/07/18 14:27> (1) Acute renal failure Qualifiers: Acute renal failure type: unspecified Qualified Code(s): N17.9 - Acute kidney failure, unspecified <Harley Julien - Last Filed: 06/07/18 18:31> (1) Acute renal failure Qualifiers: Acute renal failure type: unspecified Qualified Code(s): N17.9 - Acute kidney failure, unspecified
--- NOTE | 2018-06-07 17:45 | P.PNWCN ---
Wound Care Nurse Consult Description: Received consult from Doctor Gorman regarding bilateral heel and sacral ulcers Communicated with: Doctor Mckee RN HOME ENER[employer]ATER Recommendation: Sacral wound 1. Please cleanse wound to sacrum with normal saline only and pat dry. 2. Apply Santyl ointment jose thickness to wound bed and cover with Maxorb II just on wound do not overlap dressing onto intact skin 3. Secure with Bordered gauze dressing 4. Change dressing daily Bilateral heels 1. Please cleanse open wounds to R heel and L medial heel with normal saline only and pat dry 2. Apply Santyl ointment jose thickness to wound beds and cover with Optifoam basic, rolled gauze and tape 3. Change dressing daily Please obtain and apply bilateral heel raiser boots. Please place patient on low airloss bed either [employer] airapy or K4 from [employer]. Turn patient every 2 hours from L side to R side and limit time on back to meals and P.T.. Wound/Pressure Injury - Wound sacrum Wound Staging: Unstageable Wound Assessment: Admission Wound Type: Pressure Injury Requested from Provider a Wound Care Consult: Yes (Wound care saw patient today) Length: 4 (cm) Width: 6 (cm) Depth: 1 (~1cm and dry black eschar) Wound Bed Appearance: Necrotic, [place] Surrounding Tissue Appearance: [place] Surrounding Tissue Temperature: Warm Drainage Description: Serosanguinous (Per EMRE Verdin drainage was green when dressing was removed earlier) Drainage Amount: Scant Drainage Odor: Slight Odor Dressing Status: Changed Cleansing Solution: Saline Primary Dressing: Calcium alginate or Maxorb II Cover Dressing: Bordered gauze Wound Dressing Change Date: 06/07/18 Wound Margin Description: Well defined L medial heel Wound Staging: Unstageable Wound Assessment: Admission Wound Type: Pressure Injury Is This a Chronic Wound: Yes Requested from Provider a Wound Care Consult: Yes Length: 1.2 (cm) Width: 1.1 (cm) Depth: 0 (island of eschar) Wound Bed Appearance: Necrotic, [place] Surrounding Tissue Appearance: [place] (Periwound is pink, discolored and boggy) Surrounding Tissue Temperature: Warm Drainage Description: Serosanguinous Drainage Amount: None Drainage Odor: No Odor Dressing Status: Changed Cleansing Solution: Saline Wound Packing Type: Gauze Pads Primary Dressing: Optifoam basic Cover Dressing: Gauze Roll/Wrap Tape Type: Transparent (plastic tape) Wound Dressing Change Date: 06/07/18 Wound Margin Description: Well defined and open Right Heel Wound Staging: Stage III Wound Assessment: Admission Wound Type: Pressure Injury Is This a Chronic Wound: Yes Requested from Provider a Wound Care Consult: Yes Length: 8 (cm) Width: 4 (cm) Depth: 0.2 (~0.2cm) Wound Bed Appearance: Red, Yellow Wound Bed Appearance: Wound bed presents with ~30% yellow thin slough and ~70% red non granulation tissue Surrounding Tissue Appearance: Blanched/Dull, Edematous Surrounding Tissue Temperature: Warm Drainage Description: Green Drainage Amount: None Dressing Status: Changed Cleansing Solution: Saline Wound Packing Type: Gauze Pads Primary Dressing: Optifoam basic Cover Dressing: Gauze Roll/Wrap Tape Type: Transparent (plastic tape) Wound Dressing Change Date: 06/07/18 Wound Margin Description: uneven, wound margins - Additional Information Patient seen on for evaluation of wounds to sacrum and bilateral heels. EMRE MORLEY is at bedside for assistance. EMRE Verdin turned patient toward the L side for wound assessment. Patient noted with unstageable pressure injury to sacrum, Measurements and descriptions are noted above. Wound presents with an ~ 80% island of eschar that is mostly dry, but is moist, and loosely adherent at 3 o'clock to reveal ~1cm in depth and ~20% red non granulation tissue. Cleansed wound with normal saline and patted dry. Applied maxorb II to wound bed, just on wound. Covered wound with bordered gauze. Removed ARNALDO wrap and non adherent dressing to R heel to reveal R heel wound.Wound presents with ~30% thin yellow slough, that does not occlude visualization of wound bed and ~70% red non granulation tissue Wound is a stage 3.Wound measurements and other descriptions are noted above. Cleansed wound with normal saline and patted dry. Removed ARNALDO wrap and non adherent dressing to L heel to reveal L heel wound that presents with an island of ~40% soft, moist,brown eschar and ~60% pink tissue. wound measurements and other description are noted above Bilateral heel wounds were cleaned with normal saline and patted dry before covering open wounds with Optifoam basic. Recommendations are noted above.
[2018-06-07] MEDS: Sodium Chloride 0.45 % Inj 1,000 ML IV.CONT SCH (20:35)
[2018-06-07] MEDS: QUEtiapine 25 MG Tablet PO SCH (20:36)
[2018-06-07] MEDS: LORazepam 0.5 MG Tablet PO SCH (20:37)
[2018-06-07] MEDS: traZODone 50 MG Tablet PO SCH (20:37)
[2018-06-07] MEDS: Collagenase Oint 30 GM Tube TOPICAL SCH (20:37)
[2018-06-07] MEDS ORDERED: MEMANTINE DONEPEZIL PO SCH (21:00)
[2018-06-08 06:20] LABS: Baso % (Auto) 0.5 % (0.0-2.0); Eos # (Auto) 0.1 th/mm3 (0.0-0.4); Eos % (Auto) 0.7 % (0.0-4.0); Hematocrit 23.8 % (35.0-46.0); Lymph # (Auto) 1.5 th/mm3 (1.0-4.8); Lymph % (Auto) 18.2 % (9.0-44.0); Mean Corpuscular HGB Conc 33.7 % (32.0-36.0); Mean Corpuscular Hemoglobin 26.7 pg (27.0-34.0); Mean Corpuscular Volume 79.1 fL (80.0-100.0); Mean Platelet Volume 8.5 fL (7.0-11.0); Mono # (Auto) 0.6 th/mm3 (0.0-0.9); Mono % (Auto) 7.2 % (0.0-8.0); Neut # (Auto) 6.1 th/mm3 (1.8-7.7); Neut % (Auto) 73.4 % (16.0-70.0); Platelet Count 423 th/mm3 (150-450); Red Blood Count 3.01 mil/mm3 (4.00-5.30); Red Cell Distribution Width 16.6 % (11.6-17.2); White Blood Count 8.4 th/mm3 (4.0-11.0)
[2018-06-08 06:26] LABS: INR 1.1 Ratio; Prothrombin Time 11.1 sec (9.8-11.6)
[2018-06-08 06:34] LABS: Albumin 2.1 g/dL (3.4-5.0); Anion Gap 10 meq/L (5-15); Aspartate Aminotransferase 39 U/L (15-37); Blood Urea Nitrogen 41 mg/dL (7-18); Calcium 7.8 mg/dL (8.5-10.1); Carbon Dioxide 22.1 meq/L (21.0-32.0); Chloride 109 meq/L (98-107); Glomerular Filtration Rate 22 mL/min (>89); Glucose,Random 78 mg/dL (74-106); Magnesium 2.7 mg/dL (1.5-2.5); Potassium 4.3 meq/L (3.5-5.1); Sodium 141 meq/L (136-145)
[2018-06-08 07:11] LABS: Alanine Aminotransferase 18 U/L (10-53); Alkaline Phosphatase 38 U/L (45-117); Phosphorus 3.8 mg/dL (2.5-4.9); Total Protein 6.7 g/dL (6.4-8.2)
[2018-06-08] MEDS: Verapamil SR 240 MG Tablet PO SCH (08:36)
[2018-06-08] MEDS: Collagenase Oint 30 GM Tube TOPICAL SCH (08:36)
[2018-06-08] MEDS: Senna/Docusate Sodium 8.6/50 MG Tablet PO SCH ×2 (08:36→20:53)
[2018-06-08] MEDS: Heparin - SQ 10,000 UNITS/ML Vial SQ SCH ×2 (10:00→20:59)
--- NOTE | 2018-06-08 11:50 | P.PNIM ---
Subjective Interval history: 83-year-old female with a past medical history significant for dementia, hypertension, hyperlipidemia, depression and CHF presents to the emergency department from her home at the recommendation of her wound care nurse. The wound care nurse reports that the patient's wounds on her bilateral heels suddenly worsened and are now unstageable. She recommended emergency room for further evaluation. On arrival to the ED, the patient was found to be in acute renal failure with a creatinine of 4.88 (baseline 1.1). Per the patient's daughter she has not urinated in the last 3 days. Unable to achieve meaningful history from the patient secondary to her dementia. 8-10 PATIENT DAUGHTER TOLD TO BRING HER IN BY DR WAYNE BA RN AND PT CONSULT PT AND OT AND AM LABS OFFLOAD HEELS AREAS 06-08 WILL PROBABLY NEED SNF CONTINUE SAM SEEN BY WOUND CARE ORDERS PLACED WILL NEED DR BLACK NEXT WEEK CONTINUE CURRENT WOUND CARE WILL NEED SNF AM LABS Physical Exam Vital signs: Vital Signs 06/07/18 20:00 06/08/18 00:00 06/08/18 01:33 Temperature 99.6 F 99.1 F Pulse Rate 70 68 Respiratory Rate 18 18 18 Blood Pressure 167/72 H 162/70 H Pulse Oximetry 95 95 06/08/18 04:00 06/08/18 08:00 Temperature 99.1 F 98.6 F Pulse Rate 82 82 Respiratory Rate 17 18 Blood Pressure 149/68 H 126/58 L Pulse Oximetry 98 96 Intake & Output 06/07/18 06/08/18 06/08/18 18:59 06:59 18:59 Intake Total 2180 / 2180 200 / 200 Output Total 350 / 350 Balance 2180 / 2180 -150 / -150 Weight 60.8 kg Intake: IV 1500 / 1500 200 / 200 NS Inj 1,000 ML @ 50 mls/hr IV. 1000 / 1000 200 / 200 CONT .Q20H [facility] Rx#:[id number] Oral 680 / 680 Output: Urine 350 / 350 Narrative: Gen.: No acute distress Head: Normocephalic. Atraumatic. EENT: Pupils equal round and reactive to light. Nose without drainage. Airway intact. Throat without injection. Cardiovascular: Regular rate and rhythm. No murmurs, rubs or gallops. Respiratory: Lungs clear to auscultation bilaterally. No wheezes or rhonchi. Abdomen: Soft, nontender, nondistended. No peritoneal signs. Musculoskeletal: No gross deformities. No edema. Skin: 2 pressure ulcers on the heels, right worse than left. Stage UNSTAGABLE sacral ulcer. Neuro: Sensory and motor grossly intact. Cranial nerves II through XII grossly intact. - Urinary Catheter Management Indwelling Urethral Catheter Cath placed during this visit: yes Reason for continuing: Severe pressure ulcer/wound Insertion date: 06/07/18 Insertion time: 20:00 Results - Labs CBC & Chem 7: 06/08/18 05:03 06/08/18 05:03 Laboratory Results - last 24 hr 06/08/18 06/08/18 06/08/18 05:03 05:03 05:03 WBC 8.4 RBC 3.01 L Hgb 8.0 L Hct 23.8 L MCV 79.1 L MCH 26.7 L MCHC 33.7 RDW 16.6 Plt Count 423 MPV 8.5 Neut % (Auto) 73.4 H Lymph % (Auto) 18.2 [place] % (Auto) 7.2 Eos % (Auto) 0.7 Baso % (Auto) 0.5 Neut # (Auto) 6.1 Lymph # (Auto) 1.5 [place] # (Auto) 0.6 Eos # (Auto) 0.1 Baso # (Auto) 0.0 WBC Differential . Differential Comment Auto diff final PT 11.1 INR 1.1 Sodium Potassium Chloride Carbon Dioxide Anion Gap BUN Creatinine Estimated GFR Random Glucose Calcium Phosphorus Magnesium Total Bilirubin AST ALT Alkaline Phosphatase Total Protein Albumin TSH Free T4 1.00 06/08/18 05:03 WBC RBC Hgb Hct MCV MCH MCHC RDW Plt Count MPV Neut % (Auto) Lymph % (Auto) [place] % (Auto) Eos % (Auto) Baso % (Auto) Neut # (Auto) Lymph # (Auto) [place] # (Auto) Eos # (Auto) Baso # (Auto) WBC Differential Differential Comment PT INR Sodium 141 Potassium 4.3 Chloride 109 H Carbon Dioxide 22.1 Anion Gap 10 BUN 41 H Creatinine 2.49 H Estimated GFR 22 L Random Glucose 78 Calcium 7.8 L Phosphorus 3.8 Magnesium 2.7 H Total Bilirubin 0.4 AST 39 H ALT 18 Alkaline Phosphatase 38 L Total Protein 6.7 Albumin 2.1 L TSH 1.480 Free T4 Microbiology 06/06/18 20:00 Tissue - Heel Gram Stain - Final 06/06/18 20:00 Tissue - Heel Wound Culture - Final 06/06/18 20:00 Tissue - Buttock Gram Stain - Final 06/06/18 20:00 Tissue - Buttock Wound Culture - Final 06/06/18 20:00 Fluid - Other Gram Stain - Final 06/06/18 20:00 Fluid - Other Wound Culture - Preliminary gram negative rods - Imaging Foot X-Ray 06/06/18 00:00 CONCLUSION: No evidence of recent bony injury. Foot X-Ray 06/06/18 00:00 CONCLUSION: Soft tissue swelling with ulceration or tissue injury along the posterior margin of the calcaneus. No evidence of acute fracture or significant arthropathy. Chest X-Ray 06/06/18 19:16 CONCLUSION: No evidence of acute cardiopulmonary process. Abdomen/Bladder Ultrasound 06/07/18 00:00 CONCLUSION: 1. Both kidneys are small with cortical atrophy and increased cortical echogenicity characteristic of chronic medical renal disease. 2. Otherwise, no nephrolithiasis or hydronephrosis. 3. Distention of the urinary bladder Assessment and Plan - Plan 1. Acute renal failure Unclear etiology UA pending, not able to obtain as patient anuric Renal ultrasound pending Neurology consulted, appreciate assistance POSSIBLY DUE TO URINARY RETENTION- SLOW IMPROVEMENT WITH SAM AM LABS 2. Acutely worsening bilateral heel ulcers AND LARGE UNSTAGEABLE DECUBITI Concern for osteomyelitis, bilateral heel x-rays pending Wound care consulted 3. Hypertension/hyperlipidemia Continue home medications 4. Dementia/depression Continue home medications 5. CHF Patient's daughter reports a history of CHF however patient is not on any diuretic therapies Gentle IV fluid hydration given history FEN Renal diet Electrolytes: Monitor and replete as needed NS at 70 cc/hour Heparin Discussed Condition With: RN AND PT AND CM WILL NEED SNF Discharge Planning: PENDING IMPROVEMENT
[2018-06-08 12:38] LABS: Hemoglobin A1c 5.9 % (4.3-6.0)
--- NOTE | 2018-06-08 13:11 | P.DIET ---
Nutritional Evaluation Type of nutrition evaluation: initial Nutrition screening: [facility] [place] (Wound: stage 3 and unstageable pressure injuries) Subjective Subjective Comments: Dementia. Eating 25-50% per EMR. Objective - Diagnosis Acute Renal Failure - Objective % IBW: 122 (IBW = 110#) Body Weight Used for Calculations: Actual (60.8 kg) Energy Needs - Lower Range (kCal/kg): 28 Energy Needs - Upper Range (kCal/kg): 32 Lower Limit kCal/kg (kCals): 1,702 Upper Limit kCal/kg (kCals): 1,946 Lower Limit Protein Factor (Grams per Kg): 1.0 Upper Limit Protein Factor (Grams per Kg): 1.5 Lower Protein Needs (Protein): 61 Upper Protein Needs (Protein): 92 Dietitian Reviewed in Medical Record: Current diet, Curent medications, Intake & Output, Labs, Medical history, Wound/DTI Diet Order: Renal: 2 gm Na Pureed Wound Care Note: Unstageable sacral, unstageable L heel and stage 3 R heel pressure injuries See WOCN dated 06/07 Objective Comments: BUN/creat 41/2.49, Est GFR 22 Assessment Assessment: Pt is at high nutrition risk 2' to dx, pressure injuries and poor po intake. Labs reviewed and improving trend in renal labs noted. Will send Ensure Enlive bid for added nutrition: each 8 oz serving provides 350 kcals and 20 gms protein. (240 mg Na). Recommendations: 1. Continue 2 gm Na diet. Texture per ST. 2. Ensure Enlive bid. RD will monitor acceptance 3. Please assist at meals Dietitian to Monitor: Lab values, Renal labs, Supplement acceptance, Intake & Output, Diet tolerance, Weight change, PO Intake, Diet advancement, Wound/skin status, Swallow recommendations, Medical course
--- NOTE | 2018-06-08 14:50 | P.PNNP ---
Subjective Interval history: Lethargic, Tyson has been placed. Renal function is better. Physical Exam Vital signs: Vital Signs 06/07/18 20:00 06/08/18 00:00 06/08/18 01:33 Temperature 99.6 F 99.1 F Pulse Rate 70 68 Respiratory Rate 18 Blood Pressure 167/72 H 162/70 H Pulse Oximetry 95 95 06/08/18 04:00 06/08/18 08:00 06/08/18 12:00 Temperature 99.1 F 98.6 F 97.8 F Pulse Rate 82 82 Respiratory Rate 20 Blood Pressure 149/68 H 126/58 L 168/72 H Pulse Oximetry 98 96 96 Intake & Output 06/07/18 06/08/18 06/08/18 18:59 06:59 18:59 Intake Total 2180 / 2180 200 / 200 Output Total 350 / 350 Balance 2180 / 2180 -150 / -150 Weight 60.8 kg Intake: IV 1500 / 1500 200 / 200 NS Inj 1,000 ML @ 50 mls/hr IV. 1000 / 1000 200 / 200 CONT .Q20H [facility] Rx#:[id number] Oral 680 / 680 Output: Urine 350 / 350 - Constitutional no acute distress Comments: lethargy, some confusion. - Routine HEENT Exam Head: Present: normocephalic, atraumatic - Routine Neck Exam Present: supple. Absent: JVD - Routine Respiratory Exam Present: CTA bilaterally - Routine Cardiovascular Exam Present: RRR, S1, S2 - Routine Abdominal Exam Present: soft, normoactive bowel sounds - Routine Extremities Exam Absent: edema - Routine Neurological Exam Present: alert - Urinary Catheter Management Indwelling Urethral Catheter Cath placed during this visit: yes Reason for continuing: Severe pressure ulcer/wound Insertion date: 06/07/18 Insertion time: 20:00 Assessment and Plan - Assessment (1) Acute renal failure Code(s): N17.9 - Acute kidney failure, unspecified Status: Acute Qualifiers: Acute renal failure type: unspecified Qualified Code(s): N17.9 - Acute kidney failure, unspecified Plan: possible component of urinary retention. Improving, also may have pre-renal azotemia. Unclear how urine output was seen after insertion of Tyson catheter. Avoid nephrotoxic agents Taper off fluids. Voiding trial before discharge. (2) HTN (hypertension) Code(s): I10 - Essential (primary) hypertension Status: Acute Plan: On metoprolol (3) Pressure ulcer, heel Code(s): L89.609 - Pressure ulcer of unspecified heel, unspecified stage Status: Acute Plan: Wound care, supportive care
[2018-06-08] MEDS: Sodium Chloride 0.45 % Inj 1,000 ML IV.CONT SCH (18:34)
[2018-06-08] MEDS: QUEtiapine 25 MG Tablet PO SCH (20:52)
[2018-06-08] MEDS: LORazepam 0.5 MG Tablet PO SCH (20:53)
[2018-06-08] MEDS: traZODone 50 MG Tablet PO SCH (20:53)
[2018-06-08 22:55] LABS: Bacteria,Urine Many /hpf; Bilirubin,Urine Negative (Negative); Clarity,Urine Cloudy (Clear); Color,Urine Yellow (Yellw/Straw); Glucose,Urine (UA) Negative (Negative); Leukocyte Esterase,Urine Large (Negative); Mucus,Urine Few /lpf (Occasional); Nitrite,Urine Negative (Negative); Specific Gravity,Urine 1.015 (1.002-1.035); Squamous Epithelial Cell,Urine 29 /hpf (0-5)
[2018-06-09] MEDS: Verapamil SR 240 MG Tablet PO SCH (08:24)
[2018-06-09] MEDS: Senna/Docusate Sodium 8.6/50 MG Tablet PO SCH ×2 (08:24→21:49)
[2018-06-09] MEDS: Collagenase Oint 30 GM Tube TOPICAL SCH (08:24)
[2018-06-09 08:36] LABS: Baso % (Auto) 0.4 % (0.0-2.0); Eos # (Auto) 0.1 th/mm3 (0.0-0.4); Eos % (Auto) 0.6 % (0.0-4.0); Hemoglobin 8.4 gm/dL (11.6-15.3); Lymph # (Auto) 1.8 th/mm3 (1.0-4.8); Mean Corpuscular HGB Conc 34.8 % (32.0-36.0); Mean Corpuscular Hemoglobin 27.2 pg (27.0-34.0); Mean Corpuscular Volume 78.3 fL (80.0-100.0); Mean Platelet Volume 7.9 fL (7.0-11.0); Mono # (Auto) 1.1 th/mm3 (0.0-0.9); Mono % (Auto) 10.8 % (0.0-8.0); Neut # (Auto) 7.5 th/mm3 (1.8-7.7); Neut % (Auto) 71.2 % (16.0-70.0); Platelet Count 424 th/mm3 (150-450); Red Blood Count 3.07 mil/mm3 (4.00-5.30); Red Cell Distribution Width 16.2 % (11.6-17.2); White Blood Count 10.5 th/mm3 (4.0-11.0)
[2018-06-09 09:05] LABS: Alanine Aminotransferase 20 U/L (10-53); Albumin 1.9 g/dL (3.4-5.0); Alkaline Phosphatase 39 U/L (45-117); Anion Gap 11 meq/L (5-15); Aspartate Aminotransferase 77 U/L (15-37); Blood Urea Nitrogen 30 mg/dL (7-18); Calcium 7.8 mg/dL (8.5-10.1); Carbon Dioxide 19.2 meq/L (21.0-32.0); Chloride 109 meq/L (98-107); Glomerular Filtration Rate 37 mL/min (>89); Glucose,Random 72 mg/dL (74-106); Magnesium 2.1 mg/dL (1.5-2.5); Phosphorus 2.9 mg/dL (2.5-4.9); Potassium 4.2 meq/L (3.5-5.1); Sodium 139 meq/L (136-145); Total Protein 6.4 g/dL (6.4-8.2)
[2018-06-09] MEDS: Heparin - SQ 10,000 UNITS/ML Vial SQ SCH ×2 (10:13→21:52)
--- NOTE | 2018-06-09 12:33 | P.PNIM ---
Subjective Interval history: 83-year-old female with a past medical history significant for dementia, hypertension, hyperlipidemia, depression and CHF presents to the emergency department from her home at the recommendation of her wound care nurse. The wound care nurse reports that the patient's wounds on her bilateral heels suddenly worsened and are now unstageable. She recommended emergency room for further evaluation. On arrival to the ED, the patient was found to be in acute renal failure with a creatinine of 4.88 (baseline 1.1). Per the patient's daughter she has not urinated in the last 3 days. Unable to achieve meaningful history from the patient secondary to her dementia. 8 PATIENT DAUGHTER TOLD TO BRING HER IN BY DR WAYNE BA RN AND PT CONSULT PT AND OT AND AM LABS OFFLOAD HEELS AREAS 06-08 WILL PROBABLY NEED SNF CONTINUE SAM SEEN BY WOUND CARE ORDERS PLACED WILL NEED DR BLACK NEXT WEEK CONTINUE CURRENT WOUND CARE WILL NEED SNF AM LABS 06-09 RENAL FUNCTIONS CONTINUE TO IMPROVE WITH SAM IN PLACE CONSULT DR BLACK WILL NEED SNF AM LABS JESENIA RN AND CM AND PT Physical Exam Vital signs: Vital Signs 06/08/18 15:53 06/08/18 20:00 06/09/18 00:00 Temperature 97.8 F 100.1 F H 97.8 F Pulse Rate 71 77 86 Respiratory Rate 18 18 18 Blood Pressure 120/58 L 143/65 H 145/60 H Pulse Oximetry 95 95 18 L 06/09/18 00:45 06/09/18 07:12 06/09/18 08:00 Temperature 100.3 F H Pulse Rate 97 H Respiratory Rate 18 18 18 Blood Pressure 143/77 H Pulse Oximetry 94 L Intake & Output 06/08/18 06/09/18 06/09/18 18:59 06:59 18:59 Intake Total 1120 / 1120 Output Total 550 / 550 525 / 525 Balance 570 / 570 -525 / -525 Weight 60.8 kg Intake: IV 1000 / 1000 1/2 Normal Saline Inj 1,000 ML 1000 / 1000 @ 42 mls/hr IV.CONT .[id number] [facility] Rx#:[id number] Oral 120 / 120 Output: Urine 550 / 550 525 / 525 Other: Date of Last Bowel Movement 06/07/18 06/07/18 # Bowel Movements 0 Narrative: Gen.: No acute distress Head: Normocephalic. Atraumatic. EENT: Pupils equal round and reactive to light. Nose without drainage. Airway intact. Throat without injection. Cardiovascular: Regular rate and rhythm. No murmurs, rubs or gallops. Respiratory: Lungs clear to auscultation bilaterally. No wheezes or rhonchi. Abdomen: Soft, nontender, nondistended. No peritoneal signs. Musculoskeletal: No gross deformities. No edema. Skin: 2 pressure ulcers on the heels, right worse than left. Stage UNSTAGABLE sacral ulcer. Neuro: Sensory and motor grossly intact. Cranial nerves II through XII grossly intact. - Urinary Catheter Management Indwelling Urethral Catheter Cath placed during this visit: yes Reason for continuing: Severe pressure ulcer/wound Insertion date: 06/07/18 Insertion time: 20:00 Results - Labs CBC & Chem 7: 06/09/18 08:00 06/09/18 08:00 Laboratory Results - last 24 hr 06/08/18 06/08/18 06/09/18 05:03 22:18 08:00 WBC 10.5 RBC 3.07 L Hgb 8.4 L Hct 24.0 L MCV 78.3 L MCH 27.2 MCHC 34.8 RDW 16.2 Plt Count 424 MPV 7.9 Neut % (Auto) 71.2 H Lymph % (Auto) 17.0 [place] % (Auto) 10.8 H Eos % (Auto) 0.6 Baso % (Auto) 0.4 Neut # (Auto) 7.5 Lymph # (Auto) 1.8 [place] # (Auto) 1.1 H Eos # (Auto) 0.1 Baso # (Auto) 0.0 WBC Differential . Differential Comment Auto diff final Sodium Potassium Chloride Carbon Dioxide Anion Gap BUN Creatinine Estimated GFR Random Glucose Hemoglobin A1c 5.9 Calcium Phosphorus Magnesium Total Bilirubin AST ALT Alkaline Phosphatase Total Protein Albumin Urine Color Yellow Urine Clarity Cloudy H Urine pH 5.0 Ur Specific [place] 1.015 Urine Protein 30 H Urine Glucose (UA) Negative Urine Ketones Trace H Urine Occult Blood Moderate H Urine Nitrate Negative Urine Bilirubin Negative Urine Urobilinogen Less than 2 Ur Leukocyte Esterase Large H Urine RBC 8 H Urine WBC 57 H Ur Squamous Epith Cells 29 Urine Bacteria Many H Urine Mucus Few H Micro UA Comment Cath-culture ind Urine Culture Comments Cath-cult indicated 06/09/18 08:00 WBC RBC Hgb Hct MCV MCH MCHC RDW Plt Count MPV Neut % (Auto) Lymph % (Auto) [place] % (Auto) Eos % (Auto) Baso % (Auto) Neut # (Auto) Lymph # (Auto) [place] # (Auto) Eos # (Auto) Baso # (Auto) WBC Differential Differential Comment Sodium 139 Potassium 4.2 Chloride 109 H Carbon Dioxide 19.2 L Anion Gap 11 BUN 30 H Creatinine 1.59 H Estimated GFR 37 L Random Glucose 72 L Hemoglobin A1c Calcium 7.8 L Phosphorus 2.9 Magnesium 2.1 D Total Bilirubin 0.4 AST 77 H ALT 20 Alkaline Phosphatase 39 L Total Protein 6.4 Albumin 1.9 L Urine Color Urine Clarity Urine pH Ur Specific [place] Urine Protein Urine Glucose (UA) Urine Ketones Urine Occult Blood Urine Nitrate Urine Bilirubin Urine Urobilinogen Ur Leukocyte Esterase Urine RBC Urine WBC Ur Squamous Epith Cells Urine Bacteria Urine Mucus Micro UA Comment Urine Culture Comments Microbiology 06/06/18 20:00 Fluid - Other Gram Stain - Final 06/06/18 20:00 Fluid - Other Wound Culture - Preliminary gram negative rods 06/06/18 20:00 Tissue - Heel Gram Stain - Final 06/06/18 20:00 Tissue - Heel Wound Culture - Final 06/06/18 20:00 Tissue - Buttock Gram Stain - Final 06/06/18 20:00 Tissue - Buttock Wound Culture - Final Assessment and Plan - Plan 1. Acute renal failure Unclear etiology UA pending, not able to obtain as patient anuric Renal ultrasound pending Neurology consulted, appreciate assistance POSSIBLY DUE TO URINARY RETENTION- MUCH IMPROVEMENT WITH SAM AM LABS 2. Acutely worsening bilateral heel ulcers AND LARGE UNSTAGEABLE DECUBITI Concern for osteomyelitis, bilateral heel x-rays pending Wound care consulted 3. Hypertension/hyperlipidemia Continue home medications 4. Dementia/depression Continue home medications 5. CHF Patient's daughter reports a history of CHF however patient is not on any diuretic therapies Gentle IV fluid hydration given history CONSULT DR BLACK FOR WOUNDS FEN Renal diet Electrolytes: Monitor and replete as needed NS at 70 cc/hour Heparin Discussed Condition With: RN AND PT AND CM Discharge Planning: PENDING IMPROVEMENT WILL NEED SNF AT [place]
--- NOTE | 2018-06-09 12:33 | P.PNNP ---
Subjective Interval history: Remains quite lethargic, family is at the bedside. Apparently her activity level is poor, she is on a chair most of the time, however she is able to carry on a conversation. Physical Exam Vital signs: Vital Signs 06/08/18 15:53 06/08/18 20:00 06/09/18 00:00 Temperature 97.8 F 100.1 F H 97.8 F Pulse Rate 71 77 86 Respiratory Rate 18 Blood Pressure 120/58 L 143/65 H 145/60 H Pulse Oximetry 95 95 18 L 06/09/18 00:45 06/09/18 07:12 06/09/18 08:00 Temperature 100.3 F H Pulse Rate 97 H Respiratory Rate 18 Blood Pressure 143/77 H Pulse Oximetry 94 L Intake & Output 06/08/18 06/09/18 06/09/18 18:59 06:59 18:59 Intake Total 1120 / 1120 Output Total 550 / 550 525 / 525 Balance 570 / 570 -525 / -525 Weight 60.8 kg Intake: IV 1000 / 1000 1/2 Normal Saline Inj 1,000 ML 1000 / 1000 @ 42 mls/hr IV.CONT .[id number] [facility] Rx#:[id number] Oral 120 / 120 Output: Urine 550 / 550 525 / 525 Other: Date of Last Bowel Movement 06/07/18 06/07/18 # Bowel Movements 0 Narrative: Gen.: No acute distress, lethargic. Head: Normocephalic. Atraumatic. EENT: Pupils equal round and reactive to light. Nose without drainage. Airway intact. Throat without injection. Cardiovascular: Regular rate and rhythm. No murmurs, rubs or gallops. Respiratory: Lungs clear to auscultation bilaterally. No wheezes or rhonchi. Abdomen: Soft, nontender, nondistended. No peritoneal signs. Has a Tyson catheter. Musculoskeletal: No gross deformities. Trace edema. Skin: 2 pressure ulcers on the heels, right worse than left. Stage UNSTAGABLE sacral ulcer. Neuro: Sensory and motor grossly intact. Cranial nerves II through XII grossly intact. - Urinary Catheter Management Indwelling Urethral Catheter Cath placed during this visit: yes Reason for continuing: Severe pressure ulcer/wound Insertion date: 06/07/18 Insertion time: 20:00 Assessment and Plan - Assessment (1) Acute renal failure Code(s): N17.9 - Acute kidney failure, unspecified Status: Acute Qualifiers: Acute renal failure type: unspecified Qualified Code(s): N17.9 - Acute kidney failure, unspecified Plan: possible component of urinary retention. Renal function has improved. Improving, also may have pre-renal azotemia. Unclear how much urine output was seen after insertion of Tyson catheter. Avoid nephrotoxic agents Taper off fluids. Voiding trial before discharge. (2) HTN (hypertension) Code(s): I10 - Essential (primary) hypertension Status: Acute Plan: On metoprolol (3) Pressure ulcer, heel Code(s): L89.609 - Pressure ulcer of unspecified heel, unspecified stage Status: Acute Plan: Wound care, supportive care
[2018-06-09] MEDS: Sodium Chloride 0.45 % Inj 1,000 ML IV.CONT SCH (18:08)
[2018-06-09] MEDS: traZODone 50 MG Tablet PO SCH (21:49)
[2018-06-09] MEDS: QUEtiapine 25 MG Tablet PO SCH (21:50)
[2018-06-09] MEDS: LORazepam 0.5 MG Tablet PO SCH (21:50)
[2018-06-10 07:28] LABS: Baso % (Auto) 0.3 % (0.0-2.0); Eos % (Auto) 0.2 % (0.0-4.0); Hematocrit 29.9 % (35.0-46.0); Hemoglobin 9.8 gm/dL (11.6-15.3); Lymph # (Auto) 1.6 th/mm3 (1.0-4.8); Lymph % (Auto) 13.4 % (9.0-44.0); Mean Corpuscular HGB Conc 32.7 % (32.0-36.0); Mean Corpuscular Hemoglobin 26.1 pg (27.0-34.0); Mean Corpuscular Volume 79.9 fL (80.0-100.0); Mean Platelet Volume 8.5 fL (7.0-11.0); Mono # (Auto) 1.1 th/mm3 (0.0-0.9); Mono % (Auto) 9.2 % (0.0-8.0); Neut # (Auto) 9.3 th/mm3 (1.8-7.7); Neut % (Auto) 76.9 % (16.0-70.0); Platelet Count 460 th/mm3 (150-450); Red Blood Count 3.74 mil/mm3 (4.00-5.30); Red Cell Distribution Width 17.1 % (11.6-17.2); White Blood Count 12.1 th/mm3 (4.0-11.0)
[2018-06-10 07:31] LABS: Alanine Aminotransferase 22 U/L (10-53); Albumin 2.2 g/dL (3.4-5.0); Anion Gap 11 meq/L (5-15); Aspartate Aminotransferase 51 U/L (15-37); Blood Urea Nitrogen 24 mg/dL (7-18); Calcium 8.3 mg/dL (8.5-10.1); Carbon Dioxide 20.7 meq/L (21.0-32.0); Chloride 107 meq/L (98-107); Glomerular Filtration Rate 45 mL/min (>89); Glucose,Random 90 mg/dL (74-106); Magnesium 2.1 mg/dL (1.5-2.5); Phosphorus 3.1 mg/dL (2.5-4.9); Potassium 4.2 meq/L (3.5-5.1); Sodium 139 meq/L (136-145)
[2018-06-10 07:33] LABS: Alkaline Phosphatase 42 U/L (45-117)
[2018-06-10] MEDS: Heparin - SQ 10,000 UNITS/ML Vial SQ SCH ×2 (11:28→21:28)
[2018-06-10] MEDS: Senna/Docusate Sodium 8.6/50 MG Tablet PO SCH ×3 (11:29→21:27)
[2018-06-10] MEDS: Verapamil SR 240 MG Tablet PO SCH (11:29)
--- NOTE | 2018-06-10 12:04 | P.PNNP ---
Subjective Interval history: Resting. Renal function is better. She is non oliguric with a bourne. <Dinora Paul - Last Filed: 06/10/18 11:59> Physical Exam Vital signs: Vital Signs 06/09/18 12:00 06/09/18 16:00 06/09/18 20:00 Temperature 99.6 F 97.7 F 98.7 F Pulse Rate 80 71 77 Respiratory Rate 16 20 18 Blood Pressure 125/89 125/56 L 154/72 H Pulse Oximetry 95 93 L 97 06/10/18 00:00 06/10/18 04:00 06/10/18 08:00 Temperature 98.8 F 97.4 F L 98.4 F Pulse Rate 89 96 H 99 H Respiratory Rate 18 18 18 Blood Pressure 157/90 H 155/86 H 189/84 H Pulse Oximetry 96 99 96 Intake & Output 06/09/18 06/10/18 06/10/18 18:59 06:59 18:59 Intake Total 1000 / 1000 Output Total 1100 / 1100 Balance 1000 / 1000 -1100 / -1100 Weight 59.4 kg Intake: IV 1000 / 1000 1/2 Normal Saline Inj 1,000 ML 1000 / 1000 @ 42 mls/hr IV.CONT .[id number] [facility] Rx#:[id number] Output: Urine 1100 / 1100 Other: Date of Last Bowel Movement 06/07/18 06/07/18 # Bowel Movements 1 - Constitutional no acute distress, somnolent - Routine HEENT Exam Head: Present: normocephalic - Routine Neck Exam Present: supple, full ROM - Routine Respiratory Exam Present: CTA bilaterally. Absent: accessory muscle use - Routine Cardiovascular Exam Present: RRR, S1, S2 - Routine Abdominal Exam Present: soft, normoactive bowel sounds - Routine Extremities Exam Present: pulses intact. Absent: edema - Routine Skin Exam Present: dry, warm Comments: sacral and heel pressure ulcers. - Routine Neurological Exam sleeping. Hard of hearing, hx of dementia. Opens eyes to verbal cues. - Routine Psychiatric Exam Present: normal affect, normal thought process - Urinary Catheter Management Indwelling Urethral Catheter Cath placed during this visit: yes Reason for continuing: Severe pressure ulcer/wound Insertion date: 06/07/18 Insertion time: 20:00 <Dinora Paul - Last Filed: 06/10/18 11:59> Vital signs: Vital Signs 06/10/18 12:00 06/10/18 16:00 06/10/18 20:00 Temperature 99.5 F 100.5 F H 99.3 F Pulse Rate 113 H 110 H 104 H Respiratory Rate 18 18 18 Blood Pressure 108/83 184/76 H 154/70 H Pulse Oximetry 97 96 95 06/11/18 00:00 06/11/18 04:00 Temperature 99.3 F 98.5 F Pulse Rate 94 H 97 H Respiratory Rate 16 16 Blood Pressure 124/55 L 117/58 L Pulse Oximetry 97 98 Intake & Output 06/10/18 06/11/18 06/11/18 18:59 06:59 18:59 Intake Total 1120 / 1120 Output Total 850 / 850 Balance 270 / 270 Weight 59.1 kg Intake: IV 1000 / 1000 1/2 Normal Saline Inj 1,000 ML 1000 / 1000 @ 42 mls/hr IV.CONT .[id number] [facility] Rx#:[id number] Oral 120 / 120 Output: Urine Amount (Catheter) 850 / 850 Indwelling Urethral Catheter 850 / 850 Other: Date of Last Bowel Movement 06/10/18 06/11/18 # Incontinent Bowel Movements 1 - Urinary Catheter Management Indwelling Urethral Catheter Cath placed during this visit: no <Harley Julien - Last Filed: 06/11/18 08:35> Assessment and Plan - Assessment (1) Acute renal failure Code(s): N17.9 - Acute kidney failure, unspecified Status: Acute Qualifiers: Acute renal failure type: unspecified Qualified Code(s): N17.9 - Acute kidney failure, unspecified Plan: Normal renal function at baseline. ROGER due to dehydration and urinary retention. Continue IVF, her PO intake seems poor. Voiding trial today. If unable to urinate then consider urology evaluation. Repeat labs. Avoid nephrotoxic agents Taper off fluids if PO intake is adequate. Needs help with feeding. (2) HTN (hypertension) Code(s): I10 - Essential (primary) hypertension Status: Acute Plan: On metoprolol (3) Pressure ulcer, heel Code(s): L89.609 - Pressure ulcer of unspecified heel, unspecified stage Status: Acute Plan: Wound care, supportive care - Plan We will sign off at this time. Call us if needed. <Dinora Paul - Last Filed: 06/10/18 11:59> - Assessment (1) Acute renal failure Code(s): N17.9 - Acute kidney failure, unspecified Status: Acute Qualifiers: Acute renal failure type: unspecified Qualified Code(s): N17.9 - Acute kidney failure, unspecified (2) HTN (hypertension) Code(s): I10 - Essential (primary) hypertension Status: Acute (3) Pressure ulcer, heel Code(s): L89.609 - Pressure ulcer of unspecified heel, unspecified stage Status: Acute - Attending Attestation patient was seen and examined. Agree with above assessment and plan. We will sign off at this time. <Harley Julien - Last Filed: 06/11/18 08:35>
--- NOTE | 2018-06-10 12:14 | P.PNIM ---
Subjective Interval history: 83-year-old female with a past medical history significant for dementia, hypertension, hyperlipidemia, depression and CHF presents to the emergency department from her home at the recommendation of her wound care nurse. The wound care nurse reports that the patient's wounds on her bilateral heels suddenly worsened and are now unstageable. She recommended emergency room for further evaluation. On arrival to the ED, the patient was found to be in acute renal failure with a creatinine of 4.88 (baseline 1.1). Per the patient's daughter she has not urinated in the last 3 days. Unable to achieve meaningful history from the patient secondary to her dementia. 8- PATIENT DAUGHTER TOLD TO BRING HER IN BY DR WAYNE BA RN AND PT CONSULT PT AND OT AND AM LABS OFFLOAD HEELS AREAS 06-08 WILL PROBABLY NEED SNF CONTINUE SAM SEEN BY WOUND CARE ORDERS PLACED WILL NEED DR BLACK NEXT WEEK CONTINUE CURRENT WOUND CARE WILL NEED SNF AM LABS 06-09 RENAL FUNCTIONS CONTINUE TO IMPROVE WITH [facility] IN PLACE CONSULT DR BLACK WILL NEED SNF AM LABS JESENIA RN AND CM AND PT 06-10 TO HAVE VOIDING TRIAL PER NEPHROLOGY TODAY AM LABS DR BLACK TO SEE BEFORE DC TO SNF WILL NEED SNF AM LABS JESENIA RN AND PT AND CM Physical Exam Vital signs: Vital Signs 06/09/18 16:00 06/09/18 20:00 06/10/18 00:00 Temperature 97.7 F 98.7 F 98.8 F Pulse Rate 71 77 89 Respiratory Rate 20 18 18 Blood Pressure 125/56 L 154/72 H 157/90 H Pulse Oximetry 93 L 97 96 06/10/18 04:00 06/10/18 08:00 Temperature 97.4 F L 98.4 F Pulse Rate 96 H 99 H Respiratory Rate 18 18 Blood Pressure 155/86 H 189/84 H Pulse Oximetry 99 96 Intake & Output 06/09/18 06/10/18 06/10/18 18:59 06:59 18:59 Intake Total 1000 / 1000 Output Total 1100 / 1100 Balance 1000 / 1000 -1100 / -1100 Weight 59.4 kg Intake: IV 1000 / 1000 1/2 Normal Saline Inj 1,000 ML 1000 / 1000 @ 42 mls/hr IV.CONT .[id number] [facility] Rx#:[id number] Output: Urine 1100 / 1100 Other: Date of Last Bowel Movement 06/07/18 06/07/18 06/10/18 # Bowel Movements 1 Narrative: Gen.: No acute distress Head: Normocephalic. Atraumatic. EENT: Pupils equal round and reactive to light. Nose without drainage. Airway intact. Throat without injection. Cardiovascular: Regular rate and rhythm. No murmurs, rubs or gallops. Respiratory: Lungs clear to auscultation bilaterally. No wheezes or rhonchi. Abdomen: Soft, nontender, nondistended. No peritoneal signs. Musculoskeletal: No gross deformities. No edema. Skin: 2 pressure ulcers on the heels, right worse than left. Stage UNSTAGABLE sacral ulcer. Neuro: Sensory and motor grossly intact. Cranial nerves II through XII grossly intact. - Urinary Catheter Management Indwelling Urethral Catheter Cath placed during this visit: yes Reason for continuing: Severe pressure ulcer/wound Insertion date: 06/07/18 Insertion time: 20:00 Results - Labs CBC & Chem 7: 06/10/18 06:06 06/10/18 06:06 Laboratory Results - last 24 hr 06/10/18 06/10/18 06:06 06:06 WBC 12.1 H RBC 3.74 L Hgb 9.8 L Hct 29.9 L MCV 79.9 L MCH 26.1 L MCHC 32.7 RDW 17.1 Plt Count 460 H MPV 8.5 Neut % (Auto) 76.9 H Lymph % (Auto) 13.4 [place] % (Auto) 9.2 H Eos % (Auto) 0.2 Baso % (Auto) 0.3 Neut # (Auto) 9.3 H Lymph # (Auto) 1.6 [place] # (Auto) 1.1 H Eos # (Auto) 0.0 Baso # (Auto) 0.0 WBC Differential . Differential Comment Auto diff final Sodium 139 Potassium 4.2 Chloride 107 Carbon Dioxide 20.7 L Anion Gap 11 BUN 24 H Creatinine 1.36 H Estimated GFR 45 L Random Glucose 90 Calcium 8.3 L Phosphorus 3.1 Magnesium 2.1 Total Bilirubin 0.4 AST 51 H ALT 22 Alkaline Phosphatase 42 L Total Protein 7.0 D Albumin 2.2 L Microbiology 06/06/18 20:00 Fluid - Other Gram Stain - Final 06/06/18 20:00 Fluid - Other Wound Culture - Preliminary gram negative rods 06/08/18 22:18 Catheterized Urine Urine Culture - Final 50-100,000 cfu/mL mixed gram positive shae (probable contaminants) Assessment and Plan - Plan 1. Acute renal failure Unclear etiology UA pending, not able to obtain as patient anuric Renal ultrasound pending Neurology consulted, appreciate assistance POSSIBLY DUE TO URINARY RETENTION- MUCH IMPROVEMENT WITH SAM AM LABS 2. Acutely worsening bilateral heel ulcers AND LARGE UNSTAGEABLE DECUBITI Concern for osteomyelitis, bilateral heel x-rays pending Wound care consulted 3. Hypertension/hyperlipidemia Continue home medications 4. Dementia/depression Continue home medications 5. CHF Patient's daughter reports a history of CHF however patient is not on any diuretic therapies Gentle IV fluid hydration given history HAS SAM CATHETER- MAY NEED IT AT SNF VOIDING TRIAL TODAY CONSULT DR BLACK FOR WOUNDS FEN Renal diet Electrolytes: Monitor and replete as needed NS at 70 cc/hour Heparin Code Status: FULL CODE Discussed Condition With: RN AND PT AND CM Discharge Planning: PENDING IMPROVEMENT WILL NEED SNF AT [place]
[2018-06-10] MEDS: Collagenase Oint 30 GM Tube TOPICAL SCH (19:36)
[2018-06-10] MEDS: Sodium Chloride 0.45 % Inj 1,000 ML IV.CONT SCH ×2 (19:39→19:40)
[2018-06-10] MEDS: LORazepam 0.5 MG Tablet PO SCH (21:27)
[2018-06-10] MEDS: traZODone 50 MG Tablet PO SCH (21:27)
[2018-06-10] MEDS: QUEtiapine 25 MG Tablet PO SCH (21:27)
[2018-06-11 05:40] LABS: Baso % (Auto) 0.2 % (0.0-2.0); Eos # (Auto) 0.1 th/mm3 (0.0-0.4); Eos % (Auto) 0.7 % (0.0-4.0); Hematocrit 26.1 % (35.0-46.0); Hemoglobin 9.1 gm/dL (11.6-15.3); Lymph # (Auto) 2.5 th/mm3 (1.0-4.8); Lymph % (Auto) 24.8 % (9.0-44.0); Mean Corpuscular HGB Conc 34.8 % (32.0-36.0); Mean Corpuscular Hemoglobin 27.2 pg (27.0-34.0); Mean Corpuscular Volume 78.4 fL (80.0-100.0); Mean Platelet Volume 7.9 fL (7.0-11.0); Mono # (Auto) 1.2 th/mm3 (0.0-0.9); Mono % (Auto) 11.9 % (0.0-8.0); Neut # (Auto) 6.2 th/mm3 (1.8-7.7); Neut % (Auto) 62.4 % (16.0-70.0); Platelet Count 360 th/mm3 (150-450); Red Blood Count 3.33 mil/mm3 (4.00-5.30); Red Cell Distribution Width 17.1 % (11.6-17.2)
[2018-06-11 05:57] LABS: Alkaline Phosphatase 34 U/L (45-117); Total Protein 6.1 g/dL (6.4-8.2)
[2018-06-11 05:59] LABS: Alanine Aminotransferase 19 U/L (10-53); Albumin 1.8 g/dL (3.4-5.0); Anion Gap 8 meq/L (5-15); Aspartate Aminotransferase 36 U/L (15-37); Blood Urea Nitrogen 19 mg/dL (7-18); Chloride 109 meq/L (98-107); Glomerular Filtration Rate 55 mL/min (>89); Glucose,Random 68 mg/dL (74-106); Phosphorus 3.2 mg/dL (2.5-4.9); Potassium 4.8 meq/L (3.5-5.1); Sodium 139 meq/L (136-145)
[2018-06-11 08:52] VITALS: O2SAT 94
[2018-06-11] MEDS: Verapamil SR 240 MG Tablet PO SCH (10:54)
[2018-06-11] MEDS: Senna/Docusate Sodium 8.6/50 MG Tablet PO SCH (10:54)
[2018-06-11] MEDS: Heparin - SQ 10,000 UNITS/ML Vial SQ SCH (10:54)
[2018-06-11] MEDS: Collagenase Oint 30 GM Tube TOPICAL SCH (10:55)
[2018-06-11 12:18] VITALS: BP 171/79; PULSE 114; RESP 19; TEMP 98.7
--- NOTE | 2018-06-11 12:18 | P.CONWOU ---
History of Present Illness Service: 06/11/18 Consult date: 06/10/18 Reason for Consult: Management of bilateral heel ulcers and sacral ulcers Primary Care Provider: UNKNOWN History of Present Illness: Patient presents currently [facility] - History History Provided By: Medical Record - Medical History Medical History: Medical History (Last Reviewed 06/11/18 @ 09:13 by Bailee Aldridge) CHF (congestive heart failure) Dementia Depression High cholesterol Hypertension - Family History Family History: Family History (Last Reviewed 06/07/18 @ 16:52 by Shu Luis) Other Unknown family medical history - Tobacco History Smoking Status: Former smoker - Alcohol History How Often Do You Have a Drink Containing Alcohol: Never - Substance Use History Substance History: No History of Abuse - Travel History Recent Travel in the [place] Within the Last 8 Weeks: No Recent Travel Out of the Country Within the Last 8 Weeks: No - Immunization History Tetanus Immunization: Unsure Hx Influenza Vaccine This Season: No Medications and Allergies Active Medications: Active Medications Acetaminophen (Tylenol) 650 mg PO Q4H PRN PRN Reason: Temp > 100.4 Last Admin: 06/09/18 08:29 Dose: 650 mg Al Hydroxide/Mg Hydroxide (Milk Of Magnesia Liq) 30 ml PO Q12H PRN PRN Reason: Mild Constipation Aspirin (Aspirin Chew) 81 mg PO DAILY [facility] Last Admin: 06/11/18 10:54 Dose: 81 mg Bisacodyl (Dulcolax Supp) 10 mg RECTAL DAILY PRN PRN Reason: SEVERE CONSITIPATION Collagenase (Santyl Oint) 1 applicatio TOPICAL DAILY [facility] Last Admin: 06/11/18 10:55 Dose: 1 applicatio Heparin Sodium (Porcine) (Heparin Inj) 5,000 units SQ Q12H [facility] Last Admin: 06/11/18 10:54 Dose: 5,000 units Sodium Chloride (1/2 Normal Saline Inj) 1,000 mls @ 42 mls/hr IV.CONT .[id number] [facility] Last Admin: 06/10/18 19:40 Dose: 42 mls/hr Lactulose (Lactulose Liq) 30 ml PO DAILY PRN PRN Reason: SEVERE CONSITIPATION Lorazepam (Ativan) 0.5 mg PO HS [facility] Last Admin: 06/10/18 21:27 Dose: 0.5 mg Metoprolol Succinate (Toprol Xl) 25 mg PO DAILY [facility] Last Admin: 06/11/18 10:54 Dose: 25 mg Ondansetron HCl (Zofran Inj) 4 mg IV.PUSH Q6H PRN PRN Reason: NAUSEA OR VOMITING Oxybutynin Chloride (Ditropan) 10 mg PO [facility] Last Admin: 06/06/18 22:42 Dose: 10 mg Pantoprazole Sodium (Protonix) 40 mg PO DAILY [facility] Last Admin: 06/11/18 10:54 Dose: 40 mg Pt Own (Memantine- Donepezil [Namzaric] 1 Cap) 1 each PO [facility] Pravastatin Sodium (Pravachol) 20 mg PO [facility] Last Admin: 06/10/18 21:27 Dose: 20 mg Quetiapine Fumarate (Seroquel) 50 mg PO [facility] Last Admin: 06/10/18 21:27 Dose: 50 mg Senna/Docusate Sodium (Nia-Colace) 1 tab PO BID [facility] Last Admin: 06/11/18 10:54 Dose: 1 tab Sennosides (Senokot) 17.2 mg PO Q12H PRN PRN Reason: Moderate Constipation Temazepam (Restoril) 15 mg PO HS PRN PRN Reason: INSOMNIA Trazodone HCl (Desyrel) 50 mg PO [facility] Last Admin: 06/10/18 21:27 Dose: 50 mg Verapamil HCl (Isoptin Sr) 240 mg PO DAILY [facility] Last Admin: 06/11/18 10:54 Dose: 240 mg Allergies Allergy/AdvReac Type Severity Reaction Status Date / Time No Known Allergies Allergy Verified 06/06/18 17:27 Home Medications Medication Instructions Recorded Confirmed Type aspirin 81 mg PO DAILY 06/06/18 06/06/18 History collagenase clostridium histo. 1 applic TOPICAL DAILY 06/06/18 06/06/18 History [Santyl] lorazepam 0.5 mg PO 06/06/18 06/06/18 History memantine-donepezil [Namzaric] 1 cap PO 06/06/18 06/06/18 History metoprolol succinate 25 mg PO DAILY 06/06/18 06/06/18 History oxybutynin chloride 10 mg PO 06/06/18 06/06/18 History pantoprazole 40 mg PO DAILY 06/06/18 06/06/18 History pravastatin 20 mg PO HS 06/06/18 06/06/18 History quetiapine 50 mg PO HS 06/06/18 06/06/18 History trazodone 50 mg PO HS 06/06/18 06/06/18 History verapamil 240 mg PO QAM 06/06/18 06/06/18 History Physical Exam Vital signs: Vital Signs 06/10/18 16:00 06/10/18 20:00 06/11/18 00:00 Temperature 100.5 F H 99.3 F 99.3 F Pulse Rate 110 H 104 H 94 H Respiratory Rate 18 18 16 Blood Pressure 184/76 H 154/70 H 124/55 L Pulse Oximetry 96 95 97 06/11/18 04:00 06/11/18 08:00 Temperature 98.5 F 98.8 F Pulse Rate 97 H 100 H Respiratory Rate 16 17 Blood Pressure 117/58 L 170/74 H Pulse Oximetry 98 94 L Intake & Output 06/10/18 06/11/18 06/11/18 18:59 06:59 18:59 Intake Total 1120 / 1120 Output Total 850 / 850 Balance 270 / 270 Weight 59.1 kg Intake: IV 1000 / 1000 1/2 Normal Saline Inj 1,000 ML 1000 / 1000 @ 42 mls/hr IV.CONT .[id number] [facility] Rx#:[id number] Oral 120 / 120 Output: Urine Amount (Catheter) 850 / 850 Indwelling Urethral Catheter 850 / 850 Other: Date of Last Bowel Movement 06/10/18 06/11/18 06/10/18 # Incontinent Bowel Movements 1 - Urinary Catheter Management Indwelling Urethral Catheter Cath placed during this visit: yes Reason for continuing: Hourly intake/output Insertion date: 06/07/18 Insertion time: 20:00 Wound/Pressure Injury - Wound Coccyx Wound Assessment: Admission Wound Type: Pressure Injury Requested from Provider a Wound Care Consult: Yes Drainage Description: Green Drainage Amount: Minimal Dressing Status: Dry & Intact Primary Dressing: MEPILEX Left Heel Wound Assessment: Admission Wound Type: Pressure Injury Is This a Chronic Wound: Yes Requested from Provider a Wound Care Consult: Yes Wound Bed Appearance: [place] Surrounding Tissue Appearance: Edematous, [place] Surrounding Tissue Temperature: Warm Drainage Description: Green Drainage Amount: None Dressing Status: Dry & Intact Wound Packing Type: Gauze Pads Primary Dressing: Non-Adherent Gauze Pad Cover Dressing: ARNALDO WRAP Right Heel Wound Staging: Stage III Wound Assessment: Admission Wound Type: Pressure Injury Is This a Chronic Wound: Yes Requested from Provider a Wound Care Consult: Yes Length: 8 (cm) Width: 4 (cm) Depth: 0.2 (~0.2cm) Wound Bed Appearance: Red, Yellow Wound Bed Appearance: Wound bed presents with ~30% yellow thin slough and ~70% red non granulation tissue Surrounding Tissue Appearance: Blanched/Dull, Edematous Surrounding Tissue Temperature: Warm Drainage Description: Green Drainage Amount: None Drainage Odor: Foul Odor Dressing Status: Changed Cleansing Solution: Saline Topical: SANTYL Wound Packing Type: Gauze Pads Primary Dressing: Optifoam basic Cover Dressing: Gauze Roll/Wrap Tape Type: Transparent (plastic tape) Wound Dressing Change Date: 06/07/18 Wound Margin Description: uneven, wound margins sacrum Wound Staging: Unstageable Wound Assessment: Admission Wound Type: Pressure Injury Is This a Chronic Wound: Yes Requested from Provider a Wound Care Consult: Yes (Wound care saw patient today) Length: 4 (cm) Width: 6 (cm) Depth: 1 (~1cm and dry black eschar) Wound Bed Appearance: Necrotic, [place] Surrounding Tissue Appearance: [place] Surrounding Tissue Temperature: Warm Drainage Description: Serosanguinous (Per RN Velvet drainage was green when dressing was removed earlier) Drainage Amount: Scant Drainage Odor: Slight Odor Dressing Status: Changed Cleansing Solution: Saline Topical: SANTYL Wound Packing Type: Alginate Primary Dressing: Calcium alginate or Maxorb II Cover Dressing: Bordered gauze Wound Dressing Change Date: 06/07/18 Wound Margin Description: Well defined L medial heel Wound Staging: Unstageable Wound Assessment: Admission Wound Type: Pressure Injury Is This a Chronic Wound: Yes Requested from Provider a Wound Care Consult: Yes Length: 1.2 (cm) Width: 1.1 (cm) Depth: 0 (island of eschar) Wound Bed Appearance: Necrotic, [place] Surrounding Tissue Appearance: [place] (Periwound is pink, discolored and boggy) Surrounding Tissue Temperature: Warm Drainage Description: Serosanguinous Drainage Amount: None Drainage Odor: No Odor Dressing Status: Changed Cleansing Solution: Saline Topical: SANTYL Wound Packing Type: Gauze Pads Primary Dressing: Optifoam basic Cover Dressing: Gauze Roll/Wrap Tape Type: Transparent (plastic tape) Wound Dressing Change Date: 06/07/18 Wound Margin Description: Well defined and open - Additional Information Patient seen on 6 for evaluation of wounds to sacrum and bilateral heels. EMRE MORLEY is at bedside for assistance. EMRE Bueno turned patient toward the L side for wound assessment. Patient noted with unstageable pressure injury to sacrum, Measurements and descriptions are noted above. Wound presents with an ~ 80% island of eschar that is mostly dry, but is moist, and loosely adherent at 3 o'clock to reveal ~1cm in depth and ~20% red non granulation tissue. Cleansed wound with normal saline and patted dry. Applied maxorb II to wound bed, just on wound. Covered wound with bordered gauze. Removed ARNALDO wrap and non adherent dressing to R heel to reveal R heel wound.Wound presents with ~30% thin yellow slough, that does not occlude visualization of wound bed and ~70% red non granulation tissue Wound is a stage 3.Wound measurements and other descriptions are noted above. Cleansed wound with normal saline and patted dry. Removed ARNALDO wrap and non adherent dressing to L heel to reveal L heel wound that presents with an island of ~40% soft, moist,brown eschar and ~60% pink tissue. wound measurements and other description are noted above Bilateral heel wounds were cleaned with normal saline and patted dry before covering open wounds with Optifoam basic. Recommendations are noted above. Assessment and Plan - Assessment (1) Ulcer of left heel Code(s): L97.429 - Non-pressure chronic ulcer of left heel and midfoot with unspecified severity Status: Acute Plan: 06/11/18: Wound dimensions this week are: 2cmx1.3cm (2) Ulcer of right heel Code(s): L97.419 - Non-pressure chronic ulcer of right heel and midfoot with unspecified severity Status: Acute Plan: 06/11/18: Wound dimensions this week are: [id number] (3) Unstageable pressure ulcer of sacral region Code(s): L89.150 - Pressure ulcer of sacral region, unstageable Status: Acute Plan: 06/11/18: Wound dimensions this week are: [id number] eschar. There was loosened eschar on the sacrum and this was removed with sterile forceps and scissors.
--- NOTE | 2018-06-11 13:34 | P.PNWCN ---
Wound Care Nurse Consult Description: Patient seen today for wound care physician consult with Doctor Gonzáles. Communicated with: Doctor Guardado, Doctor Eliecer, Case management Recommendation: Please continue wound care recommendations as follows: Sacral wound 1. Please cleanse wound to sacrum with normal saline only and pat dry. 2. Apply Santyl ointment jose thickness to wound bed and cover with Maxorb II just on wound do not overlap dressing onto intact skin 3. Secure with Bordered gauze dressing 4. Change dressing daily Bilateral heels 1. Please cleanse open wounds to R heel and L medial heel with normal saline only and pat dry 2. Apply Santyl ointment jose thickness to wound beds and cover with Optifoam basic, rolled gauze and tape 3. Change dressing daily Please obtain and apply bilateral heel raiser boots. Turn patient every 2 hours from L side to R side and limit time on back to meals and P.T.. Wound/Pressure Injury - Wound Right Heel Wound Staging: Stage III Wound Assessment: Admission Wound Type: Pressure Injury Is This a Chronic Wound: Yes Requested from Provider a Wound Care Consult: Yes Length: 7 (cm) Width: 3 (cm) Depth: 0.3 (~0.3cm) Wound Bed Appearance: Red, Yellow Wound Bed Appearance: Wound bed presents with ~30% yellow thin slough and ~70% red non granulation tissue Surrounding Tissue Temperature: Warm Drainage Description: Serosanguinous Drainage Amount: Minimal Drainage Odor: No Odor Dressing Status: Reinforced Topical: Enzymatic Debridement Ointment (Santyl ointment) Primary Dressing: Optifoam basic Cover Dressing: Gauze Roll/Wrap Tape Type: Transparent (plastic tape) Wound Dressing Change Date: 06/11/18 Wound Margin Description: uneven, wound margins sacrum Wound Staging: Unstageable Wound Assessment: Admission Wound Type: Pressure Injury Is This a Chronic Wound: Yes Requested from Provider a Wound Care Consult: Yes (Wound care saw patient today) Length: 7 (cm) Width: 3 (cm) Depth: 0 (eschar) Wound Bed Appearance: Necrotic, [place] Wound Bed Appearance: Wound bed presents with ~60% loosening moist brown eschar and ~ 40% pink tissue Surrounding Tissue Appearance: [place] Surrounding Tissue Temperature: Warm Drainage Description: Serosanguinous (Per RN Velvet drainage was green when dressing was removed earlier) Drainage Amount: Scant Drainage Odor: Slight Odor Dressing Status: Changed Cleansing Solution: Saline Topical: SANTYL Wound Packing Type: Alginate Cover Dressing: Bordered gauze Wound Dressing Change Date: 06/11/18 Wound Margin Description: Well defined L medial heel Wound Staging: Unstageable Wound Assessment: Admission Wound Type: Pressure Injury Is This a Chronic Wound: Yes Requested from Provider a Wound Care Consult: Yes Length: 2 (cm) Width: 1.3 (cm) Depth: 0 (island of eschar) Wound Bed Appearance: Necrotic, [place] Wound Bed Appearance: Wound bed presents with~ 40% island of loosened brown and yellow eschar/slough, and ~60% pink tissue . Surrounding Tissue Appearance: [place] (Periwound is pink, discolored and boggy) Surrounding Tissue Temperature: Warm Drainage Description: Serosanguinous Drainage Amount: None Drainage Odor: No Odor Dressing Status: Changed Cleansing Solution: Saline Topical: SANTYL Primary Dressing: Optifoam basic Cover Dressing: Gauze Roll/Wrap Tape Type: Transparent (plastic tape) Wound Dressing Change Date: 06/11/18 Wound Margin Description: Well defined and open - Additional Information Patient seen on with Doctor Gonzáles for wounds to sacrum and bilateral heels.Patient previously by creative writer for these wounds.Dressings to bilateral heels were changed this morning. Removed rolled gauze and lifted Optifoam basic dressings in place to reveal wounds. Wound descriptions and measurements are noted above. R heel wound still is presenting as stage III that has improved from previous assessment. L heel wound is still unstageable, with loosening island of brown eschar. Optifoam basic was applied back in place and secured with rolled gauze in tape to bilateral heels. Patient was then turned by creative writer toward her L side. Bordered gauze and maxorb II dressings in place were removed to reveal wound. Patient noted with unstageable pressure injury to sacrum, Measurements and descriptions are noted above. Wound presents with an ~ 60% island of eschar that is now moist and loosely adherent, revealing more pink tissue. Doctor Gonzáles debrided wound at bedside using scissors.Cleansed wound with normal saline and patted dry. Applied santyl ointment was gauze pad and loosely packed wound with maxorb II to wound bed. Covered wound with bordered gauze.
--- NOTE | 2018-06-11 14:06 | P.PNIM ---
Subjective Interval history: 83-year-old female with a past medical history significant for dementia, hypertension, hyperlipidemia, depression and CHF presents to the emergency department from her home at the recommendation of her wound care nurse. The wound care nurse reports that the patient's wounds on her bilateral heels suddenly worsened and are now unstageable. She recommended emergency room for further evaluation. On arrival to the ED, the patient was found to be in acute renal failure with a creatinine of 4.88 (baseline 1.1). Per the patient's daughter she has not urinated in the last 3 days. Unable to achieve meaningful history from the patient secondary to her dementia. 8-10 PATIENT DAUGHTER TOLD TO BRING HER IN BY DR WAYNE AB RN AND PT CONSULT PT AND OT AND AM LABS OFFLOAD HEELS AREAS 8- WILL PROBABLY NEED SNF CONTINUE SAM SEEN BY WOUND CARE ORDERS PLACED WILL NEED DR BLACK NEXT WEEK CONTINUE CURRENT WOUND CARE WILL NEED SNF AM LABS 12 RENAL FUNCTIONS CONTINUE TO IMPROVE WITH SAM IN PLACE CONSULT DR BLACK WILL NEED SNF AM LABS JESENIA RN AND CM AND PT 06-10 TO HAVE VOIDING TRIAL PER NEPHROLOGY TODAY AM LABS DR BLACK TO SEE BEFORE DC TO SNF WILL NEED SNF AM LABS JESENIA RN AND PT AND CM 06-11 ok to GO TO SNF HAS BEEN CLEARED BY DR BLACK NEEDS SNF [facility]IA RN AND PT AND CM Physical Exam Vital signs: Vital Signs 06/10/18 16:00 06/10/18 20:00 06/11/18 00:00 Temperature 100.5 F H 99.3 F 99.3 F Pulse Rate 110 H 104 H 94 H Respiratory Rate 18 18 16 Blood Pressure 184/76 H 154/70 H 124/55 L Pulse Oximetry 96 95 97 06/11/18 04:00 06/11/18 08:00 06/11/18 12:00 Temperature 98.5 F 98.8 F 98.7 F Pulse Rate 97 H 100 H 114 H Respiratory Rate 16 17 19 Blood Pressure 117/58 L 170/74 H 171/79 H Pulse Oximetry 98 94 L 94 L Intake & Output 06/10/18 06/11/18 06/11/18 18:59 06:59 18:59 Intake Total 1120 / 1120 Output Total 850 / 850 Balance 270 / 270 Weight 59.1 kg Intake: IV 1000 / 1000 1/2 Normal Saline Inj 1,000 ML 1000 / 1000 @ 42 mls/hr IV.CONT .[id number] [facility] Rx#:[id number] Oral 120 / 120 Output: Urine Amount (Catheter) 850 / 850 Indwelling Urethral Catheter 850 / 850 Other: Date of Last Bowel Movement 06/10/18 06/11/18 06/10/18 # Incontinent Bowel Movements 1 Narrative: Gen.: No acute distress Head: Normocephalic. Atraumatic. EENT: Pupils equal round and reactive to light. Nose without drainage. Airway intact. Throat without injection. Cardiovascular: Regular rate and rhythm. No murmurs, rubs or gallops. Respiratory: Lungs clear to auscultation bilaterally. No wheezes or rhonchi. Abdomen: Soft, nontender, nondistended. No peritoneal signs. Musculoskeletal: No gross deformities. No edema. Skin: 2 pressure ulcers on the heels, right worse than left. Stage UNSTAGABLE sacral ulcer. Neuro: Sensory and motor grossly intact. Cranial nerves II through XII grossly intact. - Urinary Catheter Management Indwelling Urethral Catheter Cath placed during this visit: yes Reason for continuing: Hourly intake/output Insertion date: 06/07/18 Insertion time: 20:00 Results - Labs CBC & Chem 7: 06/11/18 05:15 06/11/18 05:15 Laboratory Results - last 24 hr 06/11/18 06/11/18 05:15 05:15 WBC 10.0 RBC 3.33 L Hgb 9.1 L Hct 26.1 L MCV 78.4 L MCH 27.2 MCHC 34.8 RDW 17.1 Plt Count 360 MPV 7.9 Neut % (Auto) 62.4 Lymph % (Auto) 24.8 Cassia % (Auto) 11.9 H Eos % (Auto) 0.7 Baso % (Auto) 0.2 Neut # (Auto) 6.2 Lymph # (Auto) 2.5 Cassia # (Auto) 1.2 H Eos # (Auto) 0.1 Baso # (Auto) 0.0 WBC Differential . Differential Comment Auto diff final Sodium 139 Potassium 4.8 Chloride 109 H Carbon Dioxide 22.0 Anion Gap 8 BUN 19 H Creatinine 1.14 H Estimated GFR 55 L Random Glucose 68 L Calcium 8.0 L Phosphorus 3.2 Magnesium 2.0 Total Bilirubin 0.4 AST 36 ALT 19 Alkaline Phosphatase 34 L Total Protein 6.1 L D Albumin 1.8 L Microbiology 06/06/18 20:00 Fluid - Other Gram Stain - Final 06/06/18 20:00 Fluid - Other Wound Culture - Final Achromobacter xylosoxidans 06/08/18 22:18 Catheterized Urine Urine Culture - Final 50-100,000 cfu/mL mixed gram positive shae (probable contaminants) - Imaging Foot X-Ray 06/06/18 00:00 CONCLUSION: No evidence of recent bony injury. Foot X-Ray 06/06/18 00:00 CONCLUSION: Soft tissue swelling with ulceration or tissue injury along the posterior margin of the calcaneus. No evidence of acute fracture or significant arthropathy. Chest X-Ray 06/06/18 19:16 CONCLUSION: No evidence of acute cardiopulmonary process. Abdomen/Bladder Ultrasound 06/07/18 00:00 CONCLUSION: 1. Both kidneys are small with cortical atrophy and increased cortical echogenicity characteristic of chronic medical renal disease. 2. Otherwise, no nephrolithiasis or hydronephrosis. 3. Distention of the urinary bladder - Procedures NONE Assessment and Plan - Plan 1. Acute renal failure Unclear etiology UA pending, not able to obtain as patient anuric Renal ultrasound pending Neurology consulted, appreciate assistance POSSIBLY DUE TO URINARY RETENTION- MUCH IMPROVEMENT WITH SAM AM LABS 2. Acutely worsening bilateral heel ulcers AND LARGE UNSTAGEABLE DECUBITI Concern for osteomyelitis, bilateral heel x-rays pending Wound care consulted 3. Hypertension/hyperlipidemia Continue home medications 4. Dementia/depression Continue home medications 5. CHF Patient's daughter reports a history of CHF however patient is not on any diuretic therapies Gentle IV fluid hydration given history HAS SAM CATHETER- MAY NEED IT AT SNF VOIDING TRIAL TODAY CONSULT DR BLACK FOR WOUNDS FEN Renal diet Electrolytes: Monitor and replete as needed NS at 70 cc/hour Heparin OK TO DC TO SNF TODAY LEAVE SAM IN PLACE Code Status: FULL CODE Discussed Condition With: RN AND PT AND CM Discharge Planning: PENDING IMPROVEMENT WILL NEED SNF AT [place]
--- NOTE | 2018-06-11 14:18 | P.DS ---
Date of admission: 06/06/18 20:50 Primary care physician: UNKNOWN Attending physician on discharge: Mina Guardado Anticipated date of discharge: 06/11/18 Brief History from admission: 83-year-old female with a past medical history significant for dementia, hypertension, hyperlipidemia, depression and CHF presents to the emergency department from her home at the recommendation of her wound care nurse. The wound care nurse reports that the patient's wounds on her bilateral heels suddenly worsened and are now unstageable. She recommended emergency room for further evaluation. On arrival to the ED, the patient was found to be in acute renal failure with a creatinine of 4.88 (baseline 1.1). Per the patient's daughter she has not urinated in the last 3 days. Unable to achieve meaningful history from the patient secondary to her dementia. DS: Medications - Discharge Medications Prescriptions: lorazepam 0.5 mg PO HS #30 tab memantine-donepezil [Namzaric] 1 cap PO HS #30 cap temazepam 15 mg PO HS PRN #30 cap PRN Reason: Insomnia DS: Summary Hospital Course: 83-year-old female with a past medical history significant for dementia, hypertension, hyperlipidemia, depression and CHF presents to the emergency department from her home at the recommendation of her wound care nurse. The wound care nurse reports that the patient's wounds on her bilateral heels suddenly worsened and are now unstageable. She recommended emergency room for further evaluation. On arrival to the ED, the patient was found to be in acute renal failure with a creatinine of 4.88 (baseline 1.1). Per the patient's daughter she has not urinated in the last 3 days. Unable to achieve meaningful history from the patient secondary to her dementia. 8-10 PATIENT DAUGHTER TOLD TO BRING HER IN BY DR WAYNE BA RN AND PT CONSULT PT AND OT AND AM LABS OFFLOAD HEELS AREAS 8-11 WILL PROBABLY NEED SNF CONTINUE SAM SEEN BY WOUND CARE ORDERS PLACED WILL NEED DR BLACK NEXT WEEK CONTINUE CURRENT WOUND CARE WILL NEED SNF AM LABS 8-12 RENAL FUNCTIONS CONTINUE TO IMPROVE WITH SAM IN PLACE CONSULT DR BLACK WILL NEED SNF AM LABS JESENIA RN AND CM AND PT 8-13 TO HAVE VOIDING TRIAL PER NEPHROLOGY TODAY AM LABS DR BLACK TO SEE BEFORE DC TO SNF WILL NEED SNF AM LABS JESENIA RN AND PT AND CM 8-14 ok to GO TO SNF HAS BEEN CLEARED BY DR BLACK NEEDS SNF DW RN AND PT AND CM CONTINUE SAM AT DC EFORCSE CHECKED NO NARCOTICS RECENT LORAZEPAM 0.5MG ONLY 10 PILLS ON 05-27 WILL GIVE RX FOR LORAZEPAM AND TEMAZEPAM - Time Spent with Patient Total time spent providing and/or coordinating discharge services: Greater than 30 minutes - Quality: VTE Deep Vein Thrombosis/Pulmonary Embolism Present on Admission: No Exam Vital signs: Vital Signs 06/10/18 16:00 06/10/18 20:00 06/11/18 00:00 Temperature 100.5 F H 99.3 F 99.3 F Pulse Rate 110 H 104 H 94 H Respiratory Rate 18 18 16 Blood Pressure 184/76 H 154/70 H 124/55 L Pulse Oximetry 96 95 97 06/11/18 04:00 06/11/18 08:00 06/11/18 12:00 Temperature 98.5 F 98.8 F 98.7 F Pulse Rate 97 H 100 H 114 H Respiratory Rate 16 17 19 Blood Pressure 117/58 L 170/74 H 171/79 H Pulse Oximetry 98 94 L 94 L Intake & Output 06/10/18 06/11/18 06/11/18 18:59 06:59 18:59 Intake Total 1120 / 1120 Output Total 850 / 850 Balance 270 / 270 Weight 59.1 kg Intake: IV 1000 / 1000 1/2 Normal Saline Inj 1,000 ML 1000 / 1000 @ 42 mls/hr IV.CONT .[id number] [facility] Rx#:[id number] Oral 120 / 120 Output: Urine Amount (Catheter) 850 / 850 Indwelling Urethral Catheter 850 / 850 Other: Date of Last Bowel Movement 06/10/18 06/11/18 06/10/18 # Incontinent Bowel Movements 1 Narrative: Gen.: No acute distress Head: Normocephalic. Atraumatic. EENT: Pupils equal round and reactive to light. Nose without drainage. Airway intact. Throat without injection. Cardiovascular: Regular rate and rhythm. No murmurs, rubs or gallops. Respiratory: Lungs clear to auscultation bilaterally. No wheezes or rhonchi. Abdomen: Soft, nontender, nondistended. No peritoneal signs. Musculoskeletal: No gross deformities. No edema. Skin: 2 pressure ulcers on the heels, right worse than left. Stage UNSTAGABLE sacral ulcer. Neuro: Sensory and motor grossly intact. Cranial nerves II through XII grossly intact. Results Procedures completed during hospitalization: NONE Completed studies during hospitalization: Laboratory Results WBC 10.0 th/mm3 (4.0-11.0) 06/11/18 05:15 RBC 3.33 mil/mm3 (4.00-5.30) L 06/11/18 05:15 Hgb 9.1 gm/dL (11.6-15.3) L 06/11/18 05:15 Hct 26.1 % (35.0-46.0) L 06/11/18 05:15 MCV 78.4 fL (80.0-100.0) L 06/11/18 05:15 MCH 27.2 pg (27.0-34.0) 06/11/18 05:15 MCHC 34.8 % (32.0-36.0) 06/11/18 05:15 RDW 17.1 % (11.6-17.2) 06/11/18 05:15 Plt Count 360 th/mm3 (150-450) 06/11/18 05:15 MPV 7.9 fL (7.0-11.0) 06/11/18 05:15 Neut % (Auto) 62.4 % (16.0-70.0) 06/11/18 05:15 Lymph % (Auto) 24.8 % (9.0-44.0) 06/11/18 05:15 Dawson % (Auto) 11.9 % (0.0-8.0) H 06/11/18 05:15 Eos % (Auto) 0.7 % (0.0-4.0) 06/11/18 05:15 Baso % (Auto) 0.2 % (0.0-2.0) 06/11/18 05:15 Neut # (Auto) 6.2 th/mm3 (1.8-7.7) 06/11/18 05:15 Lymph # (Auto) 2.5 th/mm3 (1.0-4.8) 06/11/18 05:15 Dawson # (Auto) 1.2 th/mm3 (0.0-0.9) H 06/11/18 05:15 Eos # (Auto) 0.1 th/mm3 (0.0-0.4) 06/11/18 05:15 Baso # (Auto) 0.0 th/mm3 (0.0-0.2) 06/11/18 05:15 WBC Differential . 06/11/18 05:15 Differential Comment Auto diff final 06/11/18 05:15 PT 11.1 sec (9.8-11.6) 06/08/18 05:03 INR 1.1 Ratio 06/08/18 05:03 APTT 28.2 sec (24.3-30.1) 06/06/18 19:40 Sodium 139 meq/L (136-145) 06/11/18 05:15 Potassium 4.8 meq/L (3.5-5.1) 06/11/18 05:15 Chloride 109 meq/L (98-107) H 06/11/18 05:15 Carbon Dioxide 22.0 meq/L (21.0-32.0) 06/11/18 05:15 Anion Gap 8 meq/L (5-15) 06/11/18 05:15 BUN 19 mg/dL (7-18) H 06/11/18 05:15 Creatinine 1.14 mg/dL (0.50-1.00) H 06/11/18 05:15 Estimated GFR 55 mL/min (>89) L 06/11/18 05:15 Random Glucose 68 mg/dL (74-106) L 06/11/18 05:15 Hemoglobin A1c 5.9 % (4.3-6.0) 06/08/18 05:03 Calcium 8.0 mg/dL (8.5-10.1) L 06/11/18 05:15 Phosphorus 3.2 mg/dL (2.5-4.9) 06/11/18 05:15 Magnesium 2.0 mg/dL (1.5-2.5) 06/11/18 05:15 Total Bilirubin 0.4 mg/dL (0.2-1.0) 06/11/18 05:15 AST 36 U/L (15-37) 06/11/18 05:15 ALT 19 U/L (10-53) 06/11/18 05:15 Alkaline Phosphatase 34 U/L (45-117) L 06/11/18 05:15 Total Protein 6.1 g/dL (6.4-8.2) L D 06/11/18 05:15 Albumin 1.8 g/dL (3.4-5.0) L 06/11/18 05:15 TSH 1.480 uIU/mL (0.358-3.740) 06/08/18 05:03 Free T4 1.00 ng/dL (0.76-1.46) 06/08/18 05:03 Urine Color Yellow (Yellw/Straw) 06/08/18 22:18 Urine Clarity Cloudy (Clear) H 06/08/18 22:18 Urine pH 5.0 (5.0-8.5) 06/08/18 22:18 Ur Specific Gillett 1.015 (1.002-1.035) 06/08/18 22:18 Urine Protein 30 mg/dL (Neg-Trace) H 06/08/18 22:18 Urine Glucose (UA) Negative mg/dL (Negative) 06/08/18 22:18 Urine Ketones Trace mg/dL (Negative) H 06/08/18 22:18 Urine Occult Blood Moderate (Negative) H 06/08/18 22:18 Urine Nitrate Negative (Negative) 06/08/18 22:18 Urine Bilirubin Negative (Negative) 06/08/18 22:18 Urine Urobilinogen Less than 2 mg/dL (Less than 2) 06/08/18 22:18 Ur Leukocyte Esterase Large (Negative) H 06/08/18 22:18 Urine RBC 8 /hpf (0-3) H 06/08/18 22:18 Urine WBC 57 /hpf (0-5) H 06/08/18 22:18 Ur Squamous Epith Cells 29 /hpf (0-5) 06/08/18 22:18 Urine Bacteria Many /hpf (None) H 06/08/18 22:18 Urine Mucus Few /lpf (Occasional) H 06/08/18 22:18 Micro UA Comment Cath-culture ind 06/08/18 22:18 Urine Culture Comments Cath-cult indicated 06/08/18 22:18 Impressions Foot X-Ray 06/06/18 00:00 CONCLUSION: Soft tissue swelling with ulceration or tissue injury along the posterior margin of the calcaneus. No evidence of acute fracture or significant arthropathy. Chest X-Ray 06/06/18 19:16 CONCLUSION: No evidence of acute cardiopulmonary process. Abdomen/Bladder Ultrasound 06/07/18 00:00 CONCLUSION: 1. Both kidneys are small with cortical atrophy and increased cortical echogenicity characteristic of chronic medical renal disease. 2. Otherwise, no nephrolithiasis or hydronephrosis. 3. Distention of the urinary bladder Labs on day of discharge: Labs from last 24 hours 06/11/18 06/11/18 05:15 05:15 WBC 10.0 RBC 3.33 L Hgb 9.1 L Hct 26.1 L MCV 78.4 L MCH 27.2 MCHC 34.8 RDW 17.1 Plt Count 360 MPV 7.9 Neut % (Auto) 62.4 Lymph % (Auto) 24.8 Dawson % (Auto) 11.9 H Eos % (Auto) 0.7 Baso % (Auto) 0.2 Neut # (Auto) 6.2 Lymph # (Auto) 2.5 Dawson # (Auto) 1.2 H Eos # (Auto) 0.1 Baso # (Auto) 0.0 WBC Differential . Differential Comment Auto diff final Sodium 139 Potassium 4.8 Chloride 109 H Carbon Dioxide 22.0 Anion Gap 8 BUN 19 H Creatinine 1.14 H Estimated GFR 55 L Random Glucose 68 L Calcium 8.0 L Phosphorus 3.2 Magnesium 2.0 Total Bilirubin 0.4 AST 36 ALT 19 Alkaline Phosphatase 34 L Total Protein 6.1 L D Albumin 1.8 L - Impressions ITS Impressions Foot X-Ray 06/06/18 00:00 CONCLUSION: Soft tissue swelling with ulceration or tissue injury along the posterior margin of the calcaneus. No evidence of acute fracture or significant arthropathy. Chest X-Ray 06/06/18 19:16 CONCLUSION: No evidence of acute cardiopulmonary process. Abdomen/Bladder Ultrasound 06/07/18 00:00 CONCLUSION: 1. Both kidneys are small with cortical atrophy and increased cortical echogenicity characteristic of chronic medical renal disease. 2. Otherwise, no nephrolithiasis or hydronephrosis. 3. Distention of the urinary bladder Discharge Plan - Discharge Disposition Patient Disposition: Discharge to SNF - Discharge Condition Condition: Stable - Discharge Order Discharge Orders: Discharge Order (Routine); Ordered 06/11/18 Ordered By: Mina Guardado - Discharge Details Anticipated Discharge Date: 06/11/18 Discharge Comment: dc to snf today - Physicians Team Primary Care Provider: UNKNOWN, Attending Provider: Mina Guardado Other Providers: Harley Julien MD ; [employer] ; Carmen Black MD ; [facility],Agency ; [facility],Agency
== END 2018-06-11 16:59 ==
LOC: NEPC 17:18 → NEDA 20:50 → N06 22:41
PROVIDERS: ADMIT Hospitalist; ATTEND Hospitalist